=== PATIENT | male | born 1955 ===

== ENCOUNTER 2023-05-14 09:07 | Emergency (ER) | payer MEDICARE, SELFPAY ==
--- NOTE | 2023-05-14 09:11 | ED.SKABFB ---
HPI - Skin/Abscess/Foreign Bdy General Chief complaint: Skin/Abscess/Foreign Body Stated complaint: Left Leg Irritation Time Seen by Provider: 05/14/23 09:11 Source: patient Mode of arrival: ambulatory Limitations: no limitations History of Present Illness HPI narrative: Gurmeet is a 67-year-old male patient presenting to the clinic today with complaints of left leg pain/swelling x 4 days. He reports he rubbed/scratched the back of his left leg on a metal piece from his truck when getting out. Leg is swollen, red, and tender. He denies any fever or chills. History of cellulitis of the right leg in the past. Related Data Home Medications Medication Instructions Recorded Confirmed No Home Medications 05/14/23 05/14/23 Allergies Allergy/AdvReac Type Severity Reaction Status Date / Time erythromycin base Allergy Severe Swelling Verified 05/14/23 09:33 of Lip/Tongue/Throat Penicillins Allergy Unknown Unknown Verified 05/14/23 09:33 Review of Systems Review of Systems: Pertinent positives per HPI. Patient denies any fever, chills, rash, headache, visual changes, dizziness, cough, runny nose, sore throat, shortness of breath, chest pain, palpitations, nausea, vomiting, diarrhea, constipation, abdominal pain, or any urinary issues. [facility] Social History Social History Smoking status: Never smoker Alcohol intake: never Substance use: never Lack of Transportation: No Lack of Food: Never True Current Housing: I Have Housing Concerned About Future Housing: No Difficulty Paying Gas/Electric Bills: No Difficulty Paying for Meds: No Currently Unemployed: No Education: High School Diploma/GED Difficulty w/ Childcare or Family Care: No Spiritual care concerns: No Comments At the time of my signature, I reviewed and agree with the nursing past medical, surgical, social, and family history. There is no relevant family history pertinent to the patient complaint. Exam Narrative: General: Well-developed, morbidly obese, in no apparent distress Head: Normocephalic, atraumatic. Cardio: Regular rate and rhythm, s1 and s2 normal, no murmur appreciated. Resp: Clear to auscultation bilaterally, no rhonchi, rales, wheezing or rubs. Musculoskeletal: No deformity, redness and swelling-1+ pitting edema to the left lower extremity-above the ankle to the knee, tender to palpation with erythema noted, grossly normal range of motion, muscle strength strong and equal, peripheral pulse strong, no cyanosis, normal gait and station Course Course Emergency Course: Portions of this record may have been created with voice recognition software. Level of Care: Express Care Visit Vital Signs Vital signs: Vital Signs Temperature 37.3 C 05/14/23 09:18 Pulse Rate 75 05/14/23 09:18 Respiratory Rate 16 05/14/23 09:18 Blood Pressure 142/84 H 05/14/23 09:18 Pulse Oximetry 95 05/14/23 09:18 Oxygen Delivery Room Air 05/14/23 09:18 Temperature 37.3 C 05/14/23 09:18 Pulse Rate 75 05/14/23 09:18 Respiratory Rate 16 05/14/23 09:18 Blood Pressure 142/84 H 05/14/23 09:18 Pulse Oximetry 95 05/14/23 09:18 Oxygen Delivery Room Air 05/14/23 09:18 Vital signs reviewed Transfer Transfered to: [place] Transportation: Other (private car) Transfer rationale: Cellulitis-left lower extremity Accepting physician: Dr. Fischer Transfer comments: transfer via private car. MDM - Skin/Abscess/Foreign Bdy MDM Narrative Medical decision making narrative: At the time of visit patient is resting comfortably on the exam table. I suspect patient has left lower leg cellulitis. Recommend transfer to the ER for blood work and IV antibiotics. Contacted Dr. Fischer for continuity of care and he accepts patient. Patient to be transferred via private car to [facility] ER. Differential Diagnosis Differential diagnosis: Marley
[2023-05-14 09:18] VITALS: BP 142/84; PULSE 75; RESP 16; TEMP 37.3; O2SAT 95
== END 2023-05-14 09:25 | disposition short-term general hospital (02) ==
PROVIDERS: Emergency Provider Nurse Practitioner Family; PCP Family Medicine
DX: L03.116 Cellulitis of left lower limb (principal)
CPT/HCPCS: 99212; G0463

== ENCOUNTER 2023-05-14 09:44 | Inpatient (IN) | payer MEDICARE, SELFPAY ==
[2023-05-14] VITALS (8 sets, daily range): BP systolic 126–171; BP diastolic 70–95; PULSE 79–95; RESP 12–22; TEMP 36.1–36.8; O2SAT 93–98; BMI 61.1
--- NOTE | ~2023-05-14 | MR_ITS ---
MRI of the left lower extremity CLINICAL HISTORY: Cellulitis TECHNIQUE: Sagittal T1-weighted and STIR images, coronal T1-weighted and STIR images, and axial T1-we ighted and STIR images were acquired. FINDINGS: Bone marrow signals are unremarkable. No fracture, marrow edema, or evidence for osteitis. No periosteal reaction evident. No evidence for medial tibial stress syndrome. Visualized muscle signals are essentially unremarkable. No muscle atrophy or edema evident. Visualize d tendons are grossly intact. Inferior portion of a large Rivas's cyst is noted at the superomedial aspect of the calf. There is di ffuse subcutaneous soft tissue edema the calf, consistent with history sialitis. No evidence for absc ess. IMPRESSION: No evidence for osteomyelitis or abscess. Diffuse subcutaneous soft tissue edema, consistent with history of cellulitis. Partially imaged large Rivas's cyst at the left knee region. Reviewed, dictated and finalized at [facility].
--- NOTE | ~2023-05-14 | XR_ITS ---
XR chest 1V portable DATE: 05/14/2023 11:54 INDICATION: Elevated white blood cell count and CRP TECHNIQUE: Portable upright AP views on 05/14/2023 at 1153 1154 hours COMPARISON: None FINDINGS: Cardiomegaly. There is pulmonary vascular congestion and redistribution, mild prominence of the minor fissure suggesting subpleural edema. Patchy infiltrate or atelectasis in the left lower lobe. No pleural effusion or pneumothorax is detec gaby. Levoscoliosis and degenerative spurring of the thoracic spine. IMPRESSION: Cardiomegaly, mild congestive changes Left lower lobe infiltrate or atelectasis Reviewed, dictated and finalized at location [facility].
--- NOTE | ~2023-05-14 | US_ITS ---
EXAMINATION: US venous doppler [facility] DATE: 05/15/2023 14:09 INDICATION: Lower extremity edema . TECHNIQUE: Grayscale images without and with compression and Doppler images of the bilateral lower ex tremity veins were obtained. COMPARISON: None FINDINGS: Right peroneal veins not visualized. The right common femoral vein, profunda (deep) femoral vein, fem oral vein, popliteal vein, posterior tibial veins, gastrocnemius vein, and greater saphenous vein are patent. The left common femoral vein, profunda (deep) femoral vein, femoral vein, popliteal vein, peroneal v ein, posterior tibial veins, gastrocnemius vein, and greater saphenous vein are patent. IMPRESSION: Right peroneal veins not visualized. Otherwise patent bilateral lower extremity veins without evidence of deep venous thrombosis. Reviewed, dictated and finalized at [facility]. IMPRESSION: Right peroneal veins not visualized. Otherwise patent bilateral lower extremity veins without evidence of deep venou s thrombosis.
[2023-05-14 10:13] LABS: Basophils Percent Auto 0.4 % (0.2-1.2); Eosinophils Absolute Auto 0.1 K/mm3 (0-0.3); Eosinophils Percent Auto 0.7 % (0-4.4); Hematocrit 47.4 % (42.0-52.0); Hemoglobin 14.7 g/dL (14.0-18.0); Immature Granulocyte Absolute 0.06 K/mm3 (0.00-0.031); Immature Granulocyte Percent A 0.6 % (0-0.5); Lymphocytes Absolute Auto 1.82 K/mm3 (0.9-3.2); Lymphocytes Percent Auto 16.7 % (18.3-44.2); Mean Corpuscular Hemoglobin 28.1 pg (26-34); Mean Corpuscular Volume 90.6 fl (80-100); Mean Platelet Volume 10.3 fl (7.4-10.4); Monocytes Absolute Auto 0.8 K/mm3 (0.1-0.6); Monocytes Percent Auto 7.3 % (2.6-8.5); Neutrophils Absolute Auto 8.1 K/mm3 (1.3-6.7); Neutrophils Percent Auto 74.3 % (45.5-73.1); Platelet Count Result 180 k/mm3 (150-375); Red Blood Count 5.23 M/mm3 (4.6-6.20); Red Cell Distribution Width 15.7 % (11.5-14.5); White Blood Count 10.9 K/mm3 (4.5-10.0)
[2023-05-14 10:29] LABS: Alanine Aminotransferase 27 U/L (6-50); Albumin Level 3.8 g/dL (3.5-5.1); Alkaline Phosphatase 89 U/L (38-126); Anion Gap 4 mmol/L (8-16); Aspartate Amino Transferase 41 U/L (17-59); Bilirubin,Total 0.9 mg/dL (0.2-1.3); Blood Urea Nitrogen 17 mg/dL (9-20); Calcium 8.4 mg/dL (8.4-10.2); Carbon Dioxide 33 mmol/L (22-30); Chloride 97 mmol/L (98-107); Estimated CRCL calculation 108 ml/min; Estimated Glomerular Filt Rate > 60; Glucose 137 mg/dL (65-110); Potassium 3.6 mmol/L (3.4-5.0); Sodium 134 mmol/L (137-145)
--- NOTE | 2023-05-14 10:34 | ED.EXTPRO ---
HPI - Extremity Problem General Chief complaint: Extremity Problem,Nontraumatic Stated complaint: L LEG REDNESS Time Seen by Provider: 05/14/23 10:11 History of Present Illness HPI Narrative: 67-year-old male reports to the emergency department for evaluation of redness to his left lower extremity x4 days. Patient states 4 days ago, he accidentally hit the back of his left lower leg on the side of his truck. Since then he has had increasing and worsening redness spreading up his leg to his knee. States he was at urgent care and was advised to come to the ED for further evaluation. The patient does not have a PCP and denies taking any medications or medical history. He denies fever, body aches or chills, nausea or vomiting, abdominal pain, chest pain or shortness of breath, history of VTE or CHF. Denies weeping to lower extremity. Related Data Allergies Allergy/AdvReac Type Severity Reaction Status Date / Time erythromycin base Allergy Severe Swelling Verified 05/14/23 09:33 of Lip/Tongue/Throat Penicillins Allergy Unknown Unknown Verified 05/14/23 09:33 Review of Systems Review of Systems: CONSTITUTIONAL: Denies fever, chills EYES: Denies visual changes, redness, or discharge. ENT: Denies rhinorrhea, congestion, sore throat, or otalgia. CARDIOVASCULAR: Denies chest pain, palpitations, or edema. RESPIRATORY: Denies cough or dyspnea. GASTROINTESTINAL: Denies abdominal pain, nausea, vomiting, or diarrhea. GENITOURINARY: Denies dysuria or hematuria. SKIN: See HPI MUSCULOSKELETAL: Denies back pain, joint pain, or myalgia. NEUROLOGIC: Denies headache, numbness, dizziness, or weakness. PSYCHIATRIC: Denies anxiety or depression. [facility] Social History Social History Smoking status: Never smoker Alcohol intake: never Exam Narrative: GENERAL: Well-appearing, in no acute distress. Patient resting comfortably in exam bed. He is pleasant and conversational. HEAD: Normocephalic EYES: PERRLA ENT: Nares clear. Mucous membranes moist. Oropharynx without tonsillar hypertrophy exudate or other lesions. NECK: Supple. CHEST: No respiratory distress. Clear to auscultation, no adventitious breath sounds. HEART: Regular rate and rhythm. No murmur heard. Normal peripheral pulses. ABDOMEN: Soft, nontender, normal active bowel sounds. EXTREMITIES: Normal range of motion. No edema. SKIN: LLE with circumferential blanching erythema and warmth from the dorsum of the foot extending up to the knee. Small healing abrasion to the posterior aspect of the left lower extremity. No active weeping or drainage. Pitting edema from the dorsum of the foot to the knee. NEURO: No focal deficits. Alert and oriented x3. PSYCH: Normal mood and affect. Course Vital Signs Vital signs: Vital Signs Temperature 98.3 F 05/14/23 09:52 Pulse Rate 95 05/14/23 09:52 Respiratory Rate 18 05/14/23 09:52 Blood Pressure 171/95 H 05/14/23 09:52 Pulse Oximetry 96 05/14/23 09:52 Oxygen Delivery Room Air 05/14/23 09:52 Temperature 98.3 F 05/14/23 09:52 Pulse Rate 80 05/14/23 11:32 Respiratory Rate 18 05/14/23 11:32 Blood Pressure 145/70 H 05/14/23 11:32 Pulse Oximetry 97 05/14/23 11:32 Oxygen Delivery Room Air 05/14/23 09:52 MDM - Extremity (Nontraumatic) MDM Narrative Medical decision making narrative: 67-year-old male reports for evaluation for redness to his left lower extremity x4 days. See HPI for further history. Vitals taken for elevated blood pressure, otherwise unremarkable. He is afebrile. Exam is concerning for extensive circumferential cellulitis to the left lower extremity. Labs significant for a leukocytosis of 10.9. Chemistry shows sodium of 134, chloride of 97, bicarb of 33 and gap of 4. His CRP is elevated at 19. Chest x-ray and urinalysis obtained given elevated CRP. Chest x-ray shows cardiomegaly and mild congestive rios
[2023-05-14] MEDS: ceFAZolin 1 GM/NS 50 ML 1 GM/50 ML BAG IVPB ×2 (10:45→20:18)
[2023-05-14 10:56] LABS: Lactic Acid Reflex 1.2 mmol/L (0.7-2.0)
[2023-05-14 12:31] LABS: Appearance Urine Clear (Clear); Bilirubin Urine 1+ (Negative); Blood Urine 1+ (Negative); Color Urine Yellow (Yellow); Glucose Urine UA Negative (Negative); Ketones Urine Trace mg/dL (Negative); Leukocyte Esterase Ur Negative LEU/UL (Negative); Nitrate Urine Negative (Negative); Protein Urine 2+ mg/dL (Negative); pH Urine 5.5 (5.0-9.0)
[2023-05-14 12:37] LABS: Bacteria Urine None Seen /hpf; Non Pathogenic Casts 0-2; RBC Urine 0-2 /hpf (0-2); Squamous Epithelial Cell Urine Occasional /hpf (Few); WBC Urine 0-5 /hpf
[2023-05-14 12:47] LABS: Add Urine Microscopic? YES
--- NOTE | 2023-05-14 15:49 | PM.IMHP ---
H&P: HPI History of Present Illness Date/Time: 05/14/23 16:00 Chief Complaint: Left leg redness and swelling. Narrative: This is a 67-year-old gentleman history of cellulitis who presented to the emergency department from urgent care for evaluation of left leg swelling and redness. The patient provides the following history. On Tuesday he scraped his leg on a piece of loose metal on his pickup truck. Since that time he has had increasing redness and swelling which is now extending up the leg. Urgent care felt that he likely need IV antibiotics and was sent to the ED. He was afebrile on arrival with stable blood pressures. Labs were significant for a WBC count of 10.9, sodium 134, chloride 97, glucose 137, CRP 19.0. He was given 1 g of cefazolin and he is being admitted in this setting for further IV antibiotics. Chest x-ray was obtained in the ED for unclear reasons however there were several findings of note including cardiomegaly with mild congestive changes and left lower lobe infiltrate or atelectasis. With further questioning he admits that he has not gone to the doctor for quite some time but to his knowledge he has no significant medical history. He suspects that he has sleep apnea and his has witnessed apneic episodes. He has chronic lower extremity edema and sleeps better when in a seated position. He denies fever, chills, sweats, nausea, vomiting, chest pain, pleuritic pain, palpitations, sensations of racing heart, nausea, vomiting, and calf pain. Of note he has not had a tetanus booster for at least 6 years. Review of Systems Review of Systems: Twelve systems were reviewed and are negative except for as per HPI. 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 Repeat biopsy of the site 1 week later showed no evidence of neoplasm and several surveillance colonoscopies thereafter have showed no recurrence. Surgical History Surgical History (Updated 05/14/23 @ 15:57 by Emelia Frias PA-C) History of colonoscopy with polypectomy (06/2016) Family History Family History (Updated 05/14/23 @ 22:43 by Emelia Frias PA-C) Sibling Throat cancer Social History Social History Social History: Surrogate medical decision maker: China Ivey, spouse. Code status: Full code. Smoking status: Never smoker Alcohol intake: never Substance use: never Lack of Transportation: No Lack of Food: Never True Current Housing: I Have Housing Concerned About Future Housing: No Difficulty Paying Gas/Electric Bills: No Difficulty Paying for Meds: No Currently Unemployed: No Education: High School Diploma/GED Difficulty w/ Childcare or Family Care: No Additional living arrangements comments: Lives with spouse in [place]. Additional occupation/education comments: [employer]. Spiritual care concerns: No Meds Home Medications and Allergies Home Medications Medication Instructions Recorded Confirmed Type No Home Medications 05/14/23 05/14/23 History Allergies Allergy/AdvReac Type Severity Reaction Status Date / Time erythromycin base Allergy Severe Swelling Verified 05/14/23 09:33 of Lip/Tongue/Throat Penicillins Allergy Unknown Unknown Verified 05/14/23 09:33 Vital Signs Vital Signs - 24 hr 05/14/23 09:52 05/14/23 09:55 05/14/23 11:02 Temperature 98.3 F Pulse Rate 95 81 Respiratory Rate 18 22 H 16 Blood Pressure 171/95 H 171/95 H 134/74 Pulse Oximetry 96 95 94 Oxygen Delivery Room Air 05/14/23 11:17 05/14/23 11:32 05/14/23 13:34 Temperature Pulse Rate 83 80 80 Respiratory Rate 20 18 12 Blood Pressure 128/75 145/70 H 127/75 Pulse Oximetry 94 97 97 Oxygen Delivery 05/14/23 14:00 Temperature 97.4 F L Pulse Rate
--- NOTE | 2023-05-14 22:10 | PCRCNOTE ---
Pt refused the Apnea link for the evening of 05/14/2023. It is the patients first night in the hospital and he has an Echo in the morning he wants to get good rest for. Pt stated he is willing to try the apnea link tomorrow night if he is still here.
[2023-05-15 04:23] VITALS: BP 137/80; PULSE 78; RESP 18; TEMP 37.2; O2SAT 99
[2023-05-15] MEDS: ceFAZolin 1 GM/NS 50 ML 1 GM/50 ML BAG IVPB ×3 (05:53→21:00)
[2023-05-15] MEDS: TETANUS,DIPHTHERIA,AC PERTUSSIS ADULT (0.5 ML) BOOSTRIX IM (05:53)
[2023-05-15 07:04] LABS: Hematocrit 43.5 % (42.0-52.0); Hemoglobin 13.6 g/dL (14.0-18.0); Mean Corpuscular HGB Conc 31.3 g/dl (32-36); Mean Corpuscular Hemoglobin 28.6 pg (26-34); Mean Corpuscular Volume 91.4 fl (80-100); Mean Platelet Volume 10.4 fl (7.4-10.4); Platelet Count Result 176 k/mm3 (150-375); Red Blood Count 4.76 M/mm3 (4.6-6.20); Red Cell Distribution Width 15.8 % (11.5-14.5); White Blood Count 10.4 K/mm3 (4.5-10.0)
[2023-05-15 07:09] LABS: Anion Gap 6 mmol/L (8-16); Blood Urea Nitrogen 16 mg/dL (9-20); Calcium 8.2 mg/dL (8.4-10.2); Carbon Dioxide 29 mmol/L (22-30); Chloride 99 mmol/L (98-107); Estimated CRCL calculation 120 ml/min; Estimated Glomerular Filt Rate > 60; Glucose 136 mg/dL (65-110); Magnesium 2.3 mg/dL (1.6-2.3); Sodium 134 mmol/L (137-145)
[2023-05-15 07:16] LABS: NT Pro B Type Natriuretic Pept 254 pg/mL (19.9-100)
[2023-05-15] MEDS: ENOXAPARIN 40 MG/0.4 ML SYRINGE SUB-Q (08:40)
--- NOTE | 2023-05-15 13:39 | PM.IMPN ---
Progress Note: A&P Assessment and Plan (1) Left leg cellulitis: Code(s): L03.116 - Cellulitis of left lower limb Status: Acute (2) Cardiomegaly: Code(s): I51.7 - Cardiomegaly Status: Acute (3) Suspected sleep apnea: Code(s): R29.818 - Other symptoms and signs involving the nervous system Status: Acute Plan The patient presented to the emergency department for evaluation of increasing redness and swelling over the left leg. Findings of cellulitis left lower extremity. Started on cefazolin which will be continue Blood culture remains negative to date Incidental cardiomegaly with congestive changes. Get venous duplex and echocardiogram will be ordered. BNP 254. Suspected sleep apnea with morbid obesity apnea link was ordered patient refused testing 05/14/2023. DVT prophylaxis Lovenox Code status full code Subjective Date/time seen: 05/15/23 13:39 Interval history: Feeling better. His left leg cellulitis is not asthma is red he states. Remains afebrile. Vitals stable. Review of Systems Review of Systems: Twelve systems were reviewed and are negative except for as per HPI. Exam Narrative: General: Nontoxic, morbidly obese male sitting in a chair at the side of the bed in no acute distress. HEENT: Normocephalic, atraumatic. PERRL, EOMI. Sclera anicteric. Oral mucosa moist. Crowded oropharynx. Neck: Supple. Exam limited due to neck circumference. No obvious JVD. Respiratory: Respirations are nonlabored. Lung sounds are a bit diminished due to body habitus but are otherwise clear. Cardiovascular: Regular rate and rhythm with S1-S2. Gastrointestinal: Abdomen is morbidly obese, nontender, and nondistended with positive bowel sounds. Skin: Warm and dry. There is an erythematous patch on the left lower leg extending from the medial posterior calf over the brothers and to the lateral calf, it is not circumferential at this time. There is some streaking which extends more medially above the knee but not to the thigh. The area is warm. No wound or oozing noted. It him eyes not past the marking that was made yesterday Extremities: No cyanosis or clubbing. Legs are large with chronic pitting edema. Radial and pedal pulses intact. Neurological: Alert. Cranial nerves 2-12 are grossly intact. No gross focal deficits to casual conversation. Psychiatric: Appropriate mood and affect. Objective Data Vital Signs Vital Signs: Vital Signs - 24 hr 05/14/23 14:00 05/14/23 20:49 05/15/23 04:23 Temperature 97.4 F L 97 F L 98.9 F Pulse Rate 79 79 78 Respiratory Rate 18 18 18 Blood Pressure 131/84 126/77 137/80 Pulse Oximetry 98 93 99 Intake/Output Intake/Output: Intake & Output 05/12/23 05/13/23 05/14/23 05/15/23 23:59 23:59 23:59 23:59 Intake Total 1340 1194 Balance 1340 1194 Meds/Results Medications: Active Medications Generic Name Dose Route Start Last Admin Trade Name Freq PRN Reason Stop Dose Admin Acetaminophen 650 mg 05/14/23 16:00 Acetaminophen 325 Mg Tablet PO Q6H PRN Mild Pain (1-3) or Fever Enoxaparin Sodium 40 mg 05/15/23 09:00 05/15/23 08:40 Enoxaparin 40 Mg/0.4 Ml Syringe SUB-Q 40 mg DAILY NICOLE Administration Cefazolin Sodium 1 gm in 50 mls @ 100 mls/hr 05/14/23 20:00 05/15/23 13:07 Ancef 1 Gm/Ns 50 Ml IVPB 100 mls/hr Q8HR NICOLE Administration Perflutren Lipid Microsphere 0 ml 05/14/23 22:49 Perflutren Lipid Microspheres 1.5 Ml Vial Diluted To 10 Ml Total Volume IV PUSH 05/17/23 22:49 ONCE PRN adequate visualization Protocol Radiology Results: ITS Impressions Chest X-Ray 05/14/23 12:04 IMPRESSION: Cardiomegaly, mild congestive changes Left lower lobe infiltrate or atelectasis Labs Labs: Laboratory Results - last 24 hr 05/15/23 06:26 WBC 10.4 H RBC 4.76 Hgb 13.6 L Hct 43.5 MCV 91.4 MCH 28.6 MCHC 31.3 L RDW 15.8 H Plt Count 176 MPV 10.4
[2023-05-15 14:00] VITALS: BP 133/71; PULSE 79; RESP 22; TEMP 36.2; O2SAT 99
[2023-05-15 20:40] VITALS: BP 108/80; PULSE 79; RESP 20; TEMP 36.7; O2SAT 97
--- NOTE | 2023-05-16 | ECHO_ITS ---
Patient Info Name: Gurmeet Ivey Age: 67 years : 1955 Gender: Male Ht: 70 in Wt: 425 lbs BSA: 3.20 m2 HR: 80 bpm BP: 131 / 66 mmHg Heart Rhythm: Sinus Rhythm Technical Quality: Fair Exam Date: 05/16/2023 2:39 PM Exam Location: [facility] Pulmonary Patient Status: Inpatient Admit Date: 05/15/2023 Staff Ordering Physician: Emelia Frias PA-C Therapy Tech: Yanet Beauchamp RDCS Attending Provider: Medhat Buckner MD Referring Physician: Altagracia ARRIAGA; Exam Type: CA echo dop color flow w con Study Info Indications - Cardiomegaly, edema, congestive changes Complete two-dimensional, color flow and Doppler transthoracic echocardiogram is performed with contrast to opacify the left ventricle and to improve the deliniation of the left ventricle endocardial borders. Contrast/Agitated Saline Contrast/Ag. Saline: Definity Amount: 3.00 ml Administered By: Yanet Beauchamp RDCS Existing IV Access: Yes IV Access Condition: patent with no signs of infiltration Summary 1. Definity contrast administered improved wall motion interpretation. 2. Left ventricular chamber dimension is normal. 3. Left ventricular systolic function is normal, estimated at 60-65%. 4. There is moderate asymmetric septal increased left ventricular wall thickness. 5. The left ventricular diastolic function is grade I diastolic dysfunction. 6. E/e' 11 is mildly elevated. 7. Left atrial chamber dimension is mildly enlarged. 8. Right atrial chamber dimension is mildly enlarged. 9. There is trace tricuspid valve regurgitation. 10. No pulmonary hypertension, estimated pulmonary arterial systolic pressure is 26 mmHg. Left Ventricle E/e' 11 is mildly elevated. Definity contrast administered improved wall motion interpretation. Left ventricular chamber dimension is normal. Left ventricular systolic function is normal, estimated at 60-65%. There is moderate asymmetric septal increased left ventricular wall thickness. The left ventricular diastolic function is grade I diastolic dysfunction. Right Ventricle Right ventricular systolic function is normal and with normal TAPSE 3.1 cm. Right ventricular chamber dimension is normal. Left Atria Left atrial chamber dimension is mildly enlarged. Right Atria Right atrial chamber dimension is mildly enlarged. Aortic Valve The aortic valve is trileaflet. There is no aortic valve stenosis. There is no aortic valve regurgitation. Pulmonic Valve There is no pulmonic regurgitation. Mitral Valve There is no mitral valve stenosis. There is no mitral valve regurgitation. Tricuspid Valve There is trace tricuspid valve regurgitation. No pulmonary hypertension, estimated pulmonary arterial systolic pressure is 26 mmHg. Pericardium/Pleural There is no pericardial effusion. Inferior Vena Cava Normal inferior vena cava with >50% collapse upon inspiration consistent with normal right atrial pressure, 5 mmHg. Aorta The aortic root size at the sinus of Valsalva is normal. Left Ventricular Outflow Tract Name Value Normal LVOT 2D LVOT Diameter 2.04 cm LVOT Doppler LVOT Peak Gradient 6 mmHg LVOT Mean Gradi
--- NOTE | 2023-05-16 02:57 | PCRCNOTE ---
Pt refused Apnea link and stated he will not do it.
[2023-05-16 05:56] VITALS: BP 131/66; PULSE 80; RESP 20; TEMP 36.9; O2SAT 95
[2023-05-16] MEDS: ceFAZolin 1 GM/NS 50 ML 1 GM/50 ML BAG IVPB ×3 (06:00→21:02)
[2023-05-16 07:18] LABS: Basophils Absolute Auto 0.1 K/mm3 (0.0-0.1); Basophils Percent Auto 0.8 % (0.2-1.2); Eosinophils Absolute Auto 0.3 K/mm3 (0-0.3); Eosinophils Percent Auto 2.7 % (0-4.4); Hematocrit 42.5 % (42.0-52.0); Hemoglobin 13.3 g/dL (14.0-18.0); Immature Granulocyte Absolute 0.18 K/mm3 (0.00-0.031); Immature Granulocyte Percent A 1.8 % (0-0.5); Lymphocytes Absolute Auto 1.86 K/mm3 (0.9-3.2); Lymphocytes Percent Auto 18.9 % (18.3-44.2); Mean Corpuscular HGB Conc 31.3 g/dl (32-36); Mean Corpuscular Hemoglobin 28.1 pg (26-34); Mean Corpuscular Volume 89.9 fl (80-100); Monocytes Absolute Auto 0.7 K/mm3 (0.1-0.6); Neutrophils Absolute Auto 6.8 K/mm3 (1.3-6.7); Neutrophils Percent Auto 68.8 % (45.5-73.1); Platelet Count Result 189 k/mm3 (150-375); Red Blood Count 4.73 M/mm3 (4.6-6.20); Red Cell Distribution Width 15.6 % (11.5-14.5); White Blood Count 9.9 K/mm3 (4.5-10.0)
[2023-05-16 07:24] LABS: Alanine Aminotransferase 22 U/L (6-50); Albumin Level 3.3 g/dL (3.5-5.1); Alkaline Phosphatase 82 U/L (38-126); Anion Gap 4 mmol/L (8-16); Aspartate Amino Transferase 33 U/L (17-59); Bilirubin,Total 0.9 mg/dL (0.2-1.3); Blood Urea Nitrogen 13 mg/dL (9-20); Calcium 8.3 mg/dL (8.4-10.2); Carbon Dioxide 32 mmol/L (22-30); Chloride 99 mmol/L (98-107); Estimated CRCL calculation 120 ml/min; Estimated Glomerular Filt Rate > 60; Glucose 128 mg/dL (65-110); Magnesium 2.2 mg/dL (1.6-2.3); Potassium 3.8 mmol/L (3.4-5.0); Sodium 135 mmol/L (137-145)
[2023-05-16] MEDS: ENOXAPARIN 40 MG/0.4 ML SYRINGE SUB-Q (08:42)
[2023-05-16 14:00] VITALS: BP 129/60; PULSE 73; RESP 16; TEMP 37.3; O2SAT 95
[2023-05-16] MEDS: PERFLUTREN LIPID MICROSPHERES 1.5 ML VIAL DILUTED TO 10 ML TOTAL VOLUME IV PUSH (15:10)
--- NOTE | 2023-05-16 16:32 | PM.IMPN ---
Progress Note: A&P Assessment and Plan (1) Left leg cellulitis: Code(s): L03.116 - Cellulitis of left lower limb Status: Acute (2) Cardiomegaly: Code(s): I51.7 - Cardiomegaly Status: Acute (3) Suspected sleep apnea: Code(s): R29.818 - Other symptoms and signs involving the nervous system Status: Acute Plan The patient presented to the emergency department for evaluation of increasing redness and swelling over the left leg. Findings of cellulitis left lower extremity. Started on cefazolin which will be continued Blood culture remains negative to date Incidental cardiomegaly with congestive changes. Get venous duplex and echocardiogram will be ordered. BNP 254. Will give a dose of Lasix Suspected sleep apnea with morbid obesity apnea link was ordered patient refused testing 05/14/2023. DVT prophylaxis Lovenox Code status full code Subjective Date/time seen: 05/16/23 16:32 Interval history: Feeling better. Pain is better. Redness still persist. Review of Systems Review of Systems: All systems reviewed & are unremarkable except as noted in HPI and below Exam Narrative: General: Nontoxic, morbidly obese male sitting in a chair at the side of the bed in no acute distress. HEENT: Normocephalic, atraumatic. PERRL, EOMI. Sclera anicteric. Oral mucosa moist. Crowded oropharynx. Neck: Supple. Exam limited due to neck circumference. No obvious JVD. Respiratory: Respirations are nonlabored. Lung sounds are a bit diminished due to body habitus but are otherwise clear. Cardiovascular: Regular rate and rhythm with S1-S2. Gastrointestinal: Abdomen is morbidly obese, nontender, and nondistended with positive bowel sounds. Skin: Warm and dry. There is an erythematous patch on the left lower leg extending from the medial posterior calf over the brothers and to the lateral calf, it is not circumferential at this time. There is some streaking which extends more medially above the knee but not to the thigh. The area is warm. No wound or oozing noted. It is not past the marking that was made on admission Extremities: No cyanosis or clubbing. Legs are large with chronic pitting edema. Radial and pedal pulses intact. Neurological: Alert. Cranial nerves 2-12 are grossly intact. No gross focal deficits to casual conversation. Psychiatric: Appropriate mood and affect. Objective Data Vital Signs Vital Signs: Vital Signs - 24 hr 05/15/23 20:40 05/16/23 05:56 05/16/23 14:00 Temperature 98.0 F 98.4 F 99.1 F Pulse Rate 79 80 73 Respiratory Rate 20 20 16 Blood Pressure 108/80 131/66 129/60 Pulse Oximetry 97 95 95 Intake/Output Intake/Output: Intake & Output 05/13/23 05/14/23 05/15/23 05/16/23 23:59 23:59 23:59 23:59 Intake Total 1340 1534 1558 Balance 1340 1534 1558 Meds/Results Medications: Active Medications Generic Name Dose Route Start Last Admin Trade Name Freq PRN Reason Stop Dose Admin Acetaminophen 650 mg 05/14/23 16:00 Acetaminophen 325 Mg Tablet PO Q6H PRN Mild Pain (1-3) or Fever Enoxaparin Sodium 40 mg 05/15/23 09:00 05/16/23 08:42 Enoxaparin 40 Mg/0.4 Ml Syringe SUB-Q 40 mg DAILY NICOLE Administration Cefazolin Sodium 1 gm in 50 mls @ 100 mls/hr 05/14/23 20:00 05/16/23 13:48 Ancef 1 Gm/Ns 50 Ml IVPB Infused Q8HR NICOLE Infusion Perflutren Lipid Microsphere 0 ml 05/14/23 22:49 Perflutren Lipid Microspheres 1.5 Ml Vial Diluted To 10 Ml Total Volume IV PUSH 05/17/23 22:49 ONCE PRN adequate visualization Protocol Radiology Results: ITS Impressions Chest X-Ray 05/14/23 12:04 IMPRESSION: Cardiomegaly, mild congestive changes Left lower lobe infiltrate or atelectasis Venous Doppler Study 05/15/23 15:28 IMPRESSION: Right peroneal veins not visualized. Otherwise patent bilateral lower extremity veins without evidence of deep venous thrombosis. Labs Labs: Laboratory Results
--- NOTE | 2023-05-16 16:40 | IVDEFINITY ---
Prior to administration of IV Definity the patient was educated on the risks and benefits of the imaging enhancing agent including potential adverse side effects. The patient verbalized understanding. Allergies were verified. No exclusion criteria were identified and at least one of the following inclusion criteria were met: 1) physician request, 2) patient technically difficult to image (per the [place] [employer] guidelines of two or more segments not discernable within the apical view), or 3) questionable left ventricular function. ?
[2023-05-16] MEDS: FUROSEMIDE INJ 40 MG/4 ML VIAL IV PUSH (17:06)
[2023-05-16 20:00] VITALS: O2SAT 95
[2023-05-16 22:00] VITALS: BP 112/49; PULSE 83; RESP 20; TEMP 37; O2SAT 90
--- NOTE | 2023-05-17 00:25 | PCRCNOTE ---
Pt continues to refuse apnea link.
[2023-05-17 04:36] VITALS: BP 139/66; PULSE 77; RESP 20; TEMP 36.3; O2SAT 92
[2023-05-17] MEDS: ceFAZolin 1 GM/NS 50 ML 1 GM/50 ML BAG IVPB ×3 (05:28→20:31)
[2023-05-17] MEDS: ENOXAPARIN 40 MG/0.4 ML SYRINGE SUB-Q (08:21)
[2023-05-17 10:21] VITALS: O2SAT 93
--- NOTE | 2023-05-17 11:38 | PM.IMPN ---
Progress Note: A&P Assessment and Plan (1) Left leg cellulitis: Code(s): L03.116 - Cellulitis of left lower limb Status: Acute (2) Cardiomegaly: Code(s): I51.7 - Cardiomegaly Status: Acute (3) Suspected sleep apnea: Code(s): R29.818 - Other symptoms and signs involving the nervous system Status: Acute Plan The patient presented to the emergency department for evaluation of increasing redness and swelling over the left leg. Findings of cellulitis left lower extremity. Started on cefazolin which will be continued. Will get MRSA screen leg swelling still present. Some blistering of the legs with some yellowish fluid present. Will add vancomycin pharmacy to dose Blood culture remains negative to date Incidental cardiomegaly with congestive changes. Venous duplex negative. Echocardiogram reviewed. BNP 254. Continue diuresis with Lasix. Suspected sleep apnea with morbid obesity apnea link was ordered patient refused testing 05/14/2023. DVT prophylaxis Lovenox Code status full code Subjective Date/time seen: 05/17/23 11:38 Interval history: Feeling better. Pain is better. Redness still persist. Has some blistering on his leg Review of Systems Review of Systems: All systems reviewed & are unremarkable except as noted in HPI and below Exam Narrative: General: Nontoxic, morbidly obese male sitting in a chair at the side of the bed in no acute distress. HEENT: Normocephalic, atraumatic. PERRL, EOMI. Sclera anicteric. Oral mucosa moist. Crowded oropharynx. Neck: Supple. Exam limited due to neck circumference. No obvious JVD. Respiratory: Respirations are nonlabored. Lung sounds are a bit diminished due to body habitus but are otherwise clear. Cardiovascular: Regular rate and rhythm with S1-S2. Gastrointestinal: Abdomen is morbidly obese, nontender, and nondistended with positive bowel sounds. Skin: Warm and dry. There is an erythematous patch on the left lower leg extending from the medial posterior calf over the brothers and to the lateral calf, it is not circumferential at this time. There is some streaking which extends more medially above the knee but not to the thigh. The area is warm. There are some blisters present on his anterior leg. No wound or oozing noted. It is not past the marking that was made on admission Extremities: No cyanosis or clubbing. Legs are large with chronic pitting edema. Radial and pedal pulses intact. Neurological: Alert. Cranial nerves 2-12 are grossly intact. No gross focal deficits to casual conversation. Psychiatric: Appropriate mood and affect. Objective Data Vital Signs Vital Signs: Vital Signs - 24 hr 05/16/23 14:00 05/16/23 20:00 05/16/23 22:00 Temperature 99.1 F 98.6 F Pulse Rate 73 83 Respiratory Rate 16 20 Blood Pressure 129/60 112/49 L Pulse Oximetry 95 95 90 Oxygen Delivery Room Air 05/17/23 04:36 05/17/23 08:00 05/17/23 10:21 Temperature 97.3 F L Pulse Rate 77 Respiratory Rate 20 Blood Pressure 139/66 Pulse Oximetry 92 93 Oxygen Delivery Room Air Room Air Intake/Output Intake/Output: Intake & Output 05/14/23 05/15/23 05/16/23 05/17/23 23:59 23:59 23:59 23:59 Intake Total 1340 1534 2380 690 Balance 1340 1534 2380 690 Meds/Results Medications: Active Medications Generic Name Dose Route Start Last Admin Trade Name Freq PRN Reason Stop Dose Admin Acetaminophen 650 mg 05/14/23 16:00 Acetaminophen 325 Mg Tablet PO Q6H PRN Mild Pain (1-3) or Fever Enoxaparin Sodium 40 mg 05/15/23 09:00 05/17/23 08:21 Enoxaparin 40 Mg/0.4 Ml Syringe SUB-Q 40 mg DAILY NICOLE Administration Cefazolin Sodium 1 gm in 50 mls @ 100 mls/hr 05/14/23 20:00 05/17/23 06:06 Ancef 1 Gm/Ns 50 Ml IVPB Infused Q8HR NICOLE Infusion Radiology Results: ITS Impressions Chest X-Ray 05/14/23 12:04 IMPRESSION: Cardiomegaly, mild congestive changes Left lower lobe infiltrate or
[2023-05-17] MEDS: FUROSEMIDE INJ 40 MG/4 ML VIAL IV PUSH (12:21)
[2023-05-17 14:00] VITALS: BP 130/71; PULSE 72; RESP 20; TEMP 36.4; O2SAT 93
[2023-05-17] MEDS: MUPIROCIN 2% OINT 22 GM TUBE 1 APPLIC TOPICAL ×2 (17:54→20:32)
--- NOTE | 2023-05-17 19:08 | PCRCNOTE ---
Pt has refused apnea link 3 nights in a row now, therefore it was not completed
[2023-05-17 21:46] VITALS: BP 129/77; PULSE 81; RESP 18; TEMP 37.1; O2SAT 94
[2023-05-18] MEDS: ceFAZolin 1 GM/NS 50 ML 1 GM/50 ML BAG IVPB ×2 (05:28→14:02)
[2023-05-18 06:00] VITALS: BP 142/82; PULSE 72; RESP 20; TEMP 36.9; O2SAT 95
[2023-05-18 07:24] LABS: Basophils Absolute Auto 0.1 K/mm3 (0.0-0.1); Basophils Percent Auto 0.6 % (0.2-1.2); Eosinophils Absolute Auto 0.2 K/mm3 (0-0.3); Hemoglobin 13.2 g/dL (14.0-18.0); Immature Granulocyte Absolute 0.18 K/mm3 (0.00-0.031); Immature Granulocyte Percent A 2.3 % (0-0.5); Lymphocytes Absolute Auto 2.17 K/mm3 (0.9-3.2); Lymphocytes Percent Auto 27.2 % (18.3-44.2); Mean Corpuscular HGB Conc 31.4 g/dl (32-36); Mean Corpuscular Hemoglobin 28.3 pg (26-34); Mean Corpuscular Volume 89.9 fl (80-100); Mean Platelet Volume 9.6 fl (7.4-10.4); Monocytes Absolute Auto 0.6 K/mm3 (0.1-0.6); Monocytes Percent Auto 6.9 % (2.6-8.5); Neutrophils Absolute Auto 4.9 K/mm3 (1.3-6.7); Platelet Count Result 242 k/mm3 (150-375); Red Blood Count 4.67 M/mm3 (4.6-6.20); Red Cell Distribution Width 15.6 % (11.5-14.5)
[2023-05-18 07:32] LABS: Chloride 95 mmol/L (98-107)
[2023-05-18 07:38] LABS: Alanine Aminotransferase 18 U/L (6-50); Albumin Level 3.3 g/dL (3.5-5.1); Alkaline Phosphatase 78 U/L (38-126); Anion Gap 3 mmol/L (8-16); Aspartate Amino Transferase 33 U/L (17-59); Bilirubin,Total 0.8 mg/dL (0.2-1.3); Blood Urea Nitrogen 14 mg/dL (9-20); Calcium 8.1 mg/dL (8.4-10.2); Carbon Dioxide 35 mmol/L (22-30); Estimated CRCL calculation 108 ml/min; Estimated Glomerular Filt Rate > 60; Glucose 136 mg/dL (65-110); Magnesium 2.1 mg/dL (1.6-2.3); Potassium 3.8 mmol/L (3.4-5.0); Sodium 133 mmol/L (137-145)
[2023-05-18] MEDS: FUROSEMIDE INJ 40 MG/4 ML VIAL IV PUSH (09:14)
[2023-05-18] MEDS: MUPIROCIN 2% OINT 22 GM TUBE 1 APPLIC TOPICAL ×2 (09:16→20:55)
[2023-05-18] MEDS: ENOXAPARIN 40 MG/0.4 ML SYRINGE SUB-Q (09:16)
[2023-05-18 14:00] VITALS: BP 126/79; PULSE 73; RESP 20; TEMP 35.9; O2SAT 97
--- NOTE | 2023-05-18 15:37 | PM.IMPN ---
Progress Note: A&P Assessment and Plan (1) Left leg cellulitis: Code(s): L03.116 - Cellulitis of left lower limb Status: Acute (2) Cardiomegaly: Code(s): I51.7 - Cardiomegaly Status: Acute (3) Suspected sleep apnea: Code(s): R29.818 - Other symptoms and signs involving the nervous system Status: Acute Plan Improving pain but erythema still the same Continue Continue Rocephin and Vancomcycin Blood culture remains negative to date Incidental cardiomegaly with congestive changes. Venous duplex negative. Echocardiogram notable for diastolic grade I dysfunction. BNP 254. Continue diuresis with Lasix. Suspected sleep apnea with morbid obesity apnea link was ordered patient refused testing 05/14/2023. DVT prophylaxis Lovenox Code status full code Subjective Date/time seen: 05/18/23 15:37 Interval history: Patient noted pain has markedly improved, however redness still the same Review of Systems Review of Systems: Twelve systems were reviewed and are negative except for as per HPI. All systems reviewed & are unremarkable except as noted in HPI and below Exam Narrative: General: Nontoxic, morbidly obese male sitting in a chair at the side of the bed in no acute distress. HEENT: Normocephalic, atraumatic. PERRL, EOMI. Sclera anicteric. Oral mucosa moist. Crowded oropharynx. Neck: Supple. Exam limited due to neck circumference. No obvious JVD. Respiratory: Respirations are nonlabored. Lung sounds are a bit diminished due to body habitus but are otherwise clear. Cardiovascular: Regular rate and rhythm with S1-S2. Gastrointestinal: Abdomen is morbidly obese, nontender, and nondistended with positive bowel sounds. Skin: Warm and dry. There is an erythematous patch on the left lower leg extending from the medial posterior calf over the brothers and to the lateral calf, it is not circumferential at this time. There is some streaking which extends more medially above the knee but not to the thigh. The area is warm. There are some blisters present on his anterior leg. No wound or oozing noted. It is not past the marking that was made on admission Extremities: No cyanosis or clubbing. Legs are large with chronic pitting edema. Radial and pedal pulses intact. Neurological: Alert. Cranial nerves 2-12 are grossly intact. No gross focal deficits to casual conversation. Psychiatric: Appropriate mood and affect. Objective Data Vital Signs Vital Signs: Vital Signs - 24 hr 05/17/23 21:46 05/18/23 06:00 05/18/23 09:15 Temperature 98.8 F 98.4 F Pulse Rate 81 72 Respiratory Rate 18 20 Blood Pressure 129/77 142/82 H Pulse Oximetry 94 95 Oxygen Delivery Room Air 05/18/23 14:00 05/18/23 14:00 Temperature 96.7 F L Pulse Rate 73 Respiratory Rate 20 Blood Pressure 126/79 Pulse Oximetry 97 97 Oxygen Delivery Room Air Intake/Output Intake/Output: Intake & Output 05/15/23 05/16/23 05/17/23 05/18/23 23:59 23:59 23:59 23:59 Intake Total 1534 2380 5156 3100 Balance 1534 2380 5156 3100 Meds/Results Medications: Active Medications Generic Name Dose Route Start Last Admin Trade Name Freq PRN Reason Stop Dose Admin Acetaminophen 650 mg 05/14/23 16:00 Acetaminophen 325 Mg Tablet PO Q6H PRN Mild Pain (1-3) or Fever Enoxaparin Sodium 40 mg 05/15/23 09:00 05/18/23 09:16 Enoxaparin 40 Mg/0.4 Ml Syringe SUB-Q 40 mg DAILY NICOLE Administration Furosemide 40 mg 05/17/23 11:40 05/18/23 09:14 Furosemide Inj 40 Mg/4 Ml Vial IV PUSH 40 mg DAILY NICOLE Administration Cefazolin Sodium 1 gm in 50 mls @ 100 mls/hr 05/14/23 20:00 05/18/23 14:32 Ancef 1 Gm/Ns 50 Ml IVPB Infused Q8HR NICOLE Infusion Vancomycin HCl 1,500 mg in 500 mls @ 250 mls/hr 05/17/23 12:00 05/18/23 13:42 Vancomycin 1,500 Mg/D5w 500 Ml IVPB Infused Q12H NICOLE Infusion Mupirocin 1 applic 05/17/23 09:00 05/18/23 09:16 Mupirocin 2% Oint 22 G
[2023-05-18] MEDS: cefTRIAXone 2 GM/NS 100 ML 2 GM/100 ML BAG IVPB (20:54)
[2023-05-18 21:13] VITALS: BP 118/69; PULSE 70; RESP 18; TEMP 36.6; O2SAT 96
[2023-05-19 00:32] LABS: Vancomycin Trough 9.1 ug/mL (10.0-20.0)
[2023-05-19 04:56] VITALS: BP 128/75; PULSE 73; RESP 18; TEMP 36.6; O2SAT 94
[2023-05-19 07:06] LABS: Basophils Percent Auto 0.5 % (0.2-1.2); Eosinophils Absolute Auto 0.2 K/mm3 (0-0.3); Eosinophils Percent Auto 2.1 % (0-4.4); Hematocrit 43.5 % (42.0-52.0); Hemoglobin 13.6 g/dL (14.0-18.0); Immature Granulocyte Absolute 0.14 K/mm3 (0.00-0.031); Immature Granulocyte Percent A 1.6 % (0-0.5); Lymphocytes Absolute Auto 2.32 K/mm3 (0.9-3.2); Lymphocytes Percent Auto 26.7 % (18.3-44.2); Mean Corpuscular HGB Conc 31.3 g/dl (32-36); Mean Corpuscular Hemoglobin 28.2 pg (26-34); Mean Corpuscular Volume 90.2 fl (80-100); Mean Platelet Volume 9.2 fl (7.4-10.4); Monocytes Absolute Auto 0.5 K/mm3 (0.1-0.6); Monocytes Percent Auto 5.8 % (2.6-8.5); Neutrophils Absolute Auto 5.5 K/mm3 (1.3-6.7); Neutrophils Percent Auto 63.3 % (45.5-73.1); Platelet Count Result 263 k/mm3 (150-375); Red Blood Count 4.82 M/mm3 (4.6-6.20); Red Cell Distribution Width 15.5 % (11.5-14.5); White Blood Count 8.7 K/mm3 (4.5-10.0)
[2023-05-19 07:24] LABS: Lactic Acid Reflex 1.2 mmol/L (0.7-2.0)
[2023-05-19 07:28] LABS: Alanine Aminotransferase 19 U/L (6-50); Albumin Level 3.4 g/dL (3.5-5.1); Alkaline Phosphatase 78 U/L (38-126); Anion Gap 5 mmol/L (8-16); Aspartate Amino Transferase 31 U/L (17-59); Bilirubin,Total 0.7 mg/dL (0.2-1.3); Blood Urea Nitrogen 12 mg/dL (9-20); Calcium 8.4 mg/dL (8.4-10.2); Carbon Dioxide 33 mmol/L (22-30); Chloride 94 mmol/L (98-107); Estimated CRCL calculation 99 ml/min; Estimated Glomerular Filt Rate > 60; Glucose 126 mg/dL (65-110); Potassium 3.9 mmol/L (3.4-5.0); Sodium 132 mmol/L (137-145)
[2023-05-19] MEDS: ENOXAPARIN 40 MG/0.4 ML SYRINGE SUB-Q (08:13)
[2023-05-19] MEDS: MUPIROCIN 2% OINT 22 GM TUBE 1 APPLIC TOPICAL ×2 (08:13→20:18)
[2023-05-19] MEDS: FUROSEMIDE INJ 40 MG/4 ML VIAL IV PUSH (08:13)
--- NOTE | 2023-05-19 12:11 | PM.IMPN ---
Progress Note: A&P Assessment and Plan (1) Left leg cellulitis: Code(s): L03.116 - Cellulitis of left lower limb Status: Acute (2) Cardiomegaly: Code(s): I51.7 - Cardiomegaly Status: Acute (3) Suspected sleep apnea: Code(s): R29.818 - Other symptoms and signs involving the nervous system Status: Acute Plan Cellulitis of lower extremity Improving pain but erythema still the same Continue Continue Rocephin and Vancomcycin Blood culture remains negative to date Patient has a scattered blisters containing pus on the lower extremity, consult general surgeon for evaluation possible I and D Incidental cardiomegaly with congestive changes. Venous duplex negative. Echocardiogram notable for diastolic grade I dysfunction. BNP 254. Continue diuresis with Lasix. Suspected sleep apnea with morbid obesity apnea link was ordered patient refused testing 05/14/2023. DVT prophylaxis Lovenox Code status full code Subjective Date/time seen: 05/19/23 12:11 Interval history: I saw and examined the patient. Still has significant cellulitis of left lower extremity, schedules blisters with pus Exam Narrative: General: Nontoxic, morbidly obese male sitting in a chair at the side of the bed in no acute distress. HEENT: Normocephalic, atraumatic. PERRL, EOMI. Sclera anicteric. Oral mucosa moist. Crowded oropharynx. Neck: Supple. Exam limited due to neck circumference. No obvious JVD. Respiratory: Respirations are nonlabored. Lung sounds are a bit diminished due to body habitus but are otherwise clear. Cardiovascular: Regular rate and rhythm with S1-S2. Gastrointestinal: Abdomen is morbidly obese, nontender, and nondistended with positive bowel sounds. Skin: Swelling, tender erythema of right lower extremity, there are some blisters containing pus on his anterior leg. The cellulitis is not past the marking that was made on admissin, but no significant improvement Extremities: No cyanosis or clubbing. Legs are large with chronic pitting edema. Radial and pedal pulses intact. Neurological: Alert. Cranial nerves 2-12 are grossly intact. No gross focal deficits to casual conversation. Psychiatric: Appropriate mood and affect. Objective Data Vital Signs Vital Signs: Vital Signs - 24 hr 05/18/23 14:00 05/18/23 14:00 05/18/23 21:13 Temperature 96.7 F L 97.9 F Pulse Rate 73 70 Respiratory Rate 20 18 Blood Pressure 126/79 118/69 Pulse Oximetry 97 97 96 Oxygen Delivery Room Air 05/19/23 04:56 05/19/23 08:10 Temperature 97.8 F Pulse Rate 73 Respiratory Rate 18 Blood Pressure 128/75 Pulse Oximetry 94 Oxygen Delivery Room Air Intake/Output Intake/Output: Intake & Output 05/16/23 05/17/23 05/18/23 05/19/23 23:59 23:59 23:59 23:59 Intake Total 2380 5156 4160 620 Balance 2380 5156 4160 620 Meds/Results Medications: Active Medications Generic Name Dose Route Start Last Admin Trade Name Freq PRN Reason Stop Dose Admin Acetaminophen 650 mg 05/14/23 16:00 Acetaminophen 325 Mg Tablet PO Q6H PRN Mild Pain (1-3) or Fever Enoxaparin Sodium 40 mg 05/15/23 09:00 05/19/23 08:13 Enoxaparin 40 Mg/0.4 Ml Syringe SUB-Q 40 mg DAILY NICOLE Administration Furosemide 40 mg 05/17/23 11:40 05/19/23 08:13 Furosemide Inj 40 Mg/4 Ml Vial IV PUSH 40 mg DAILY NICOLE Administration Ceftriaxone Sodium 2 gm in 100 mls @ 200 mls/hr 05/18/23 21:00 05/18/23 21:24 Rocephin 2 Gm/Ns 100 Ml IVPB Infused Q24H NICOLE Infusion Vancomycin HCl 1,750 mg in 500 mls @ 250 mls/hr 05/19/23 01:00 05/19/23 03:17 Vancomycin 1,750 Mg/D5w 500 Ml IVPB Infused Q12H NICOLE Infusion Mupirocin 1 applic 05/17/23 09:00 05/19/23 08:13 Mupirocin 2% Oint 22 Gm Tube TOPICAL 1 applic Q12HR NICOLE Administration Radiology Results: ITS Impressions Chest X-Ray 05/14/23 12:04 IMPRESSION: Cardiomegaly, mild congestive changes Left lower lobe
[2023-05-19 14:00] VITALS: BP 130/76; PULSE 76; RESP 16; TEMP 36.8; O2SAT 95
[2023-05-19 20:10] VITALS: PULSE 76; RESP 18; O2SAT 96
[2023-05-19] MEDS: cefTRIAXone 2 GM/NS 100 ML 2 GM/100 ML BAG IVPB (20:16)
[2023-05-19 21:37] VITALS: BP 131/59; PULSE 76; RESP 18; TEMP 36.7; O2SAT 96
[2023-05-20 06:00] VITALS: BP 132/70; PULSE 71; RESP 16; TEMP 37; O2SAT 91
[2023-05-20] MEDS: ENOXAPARIN 40 MG/0.4 ML SYRINGE SUB-Q (08:58)
[2023-05-20] MEDS: MUPIROCIN 2% OINT 22 GM TUBE 1 APPLIC TOPICAL ×2 (08:58→22:02)
[2023-05-20] MEDS: FUROSEMIDE INJ 40 MG/4 ML VIAL IV PUSH (08:58)
--- NOTE | 2023-05-20 09:00 | PM.IMPN ---
Progress Note: A&P Assessment and Plan (1) Left leg cellulitis: Code(s): L03.116 - Cellulitis of left lower limb Status: Acute (2) Cardiomegaly: Code(s): I51.7 - Cardiomegaly Status: Acute (3) Suspected sleep apnea: Code(s): R29.818 - Other symptoms and signs involving the nervous system Status: Acute Plan Cellulitis of lower extremity Improving pain but erythema still the same patient is allergic to penicillin. patient received Rocephin and Vancomcycin no improvement of cellulitis, stop Rocephin, start cefepime and Flagyl IV, continue vancomycin IV on 05/20 Blood culture remains negative to date Patient has a scattered blisters containing pus on the lower extremity, consult general surgeon for evaluation possible I and D Consult wound care Incidental cardiomegaly with congestive changes. Venous duplex negative. Echocardiogram notable for diastolic grade I dysfunction. BNP 254. Continue diuresis with Lasix. Suspected sleep apnea with morbid obesity apnea link was ordered patient refused testing 05/14/2023. DVT prophylaxis Lovenox Code status full code Subjective Date/time seen: 05/20/23 09:00 Interval history: I saw and examined the patient. Still has significant cellulitis of left lower extremity, scattered blisters with pus, no significant improvement, patient is afebrile Exam Narrative: General: Nontoxic, morbidly obese male sitting in a chair at the side of the bed in no acute distress. HEENT: Normocephalic, atraumatic. PERRL, EOMI. Sclera anicteric. Oral mucosa moist. Crowded oropharynx. Neck: Supple. Exam limited due to neck circumference. No obvious JVD. Respiratory: Respirations are nonlabored. Lung sounds are a bit diminished due to body habitus but are otherwise clear. Cardiovascular: Regular rate and rhythm with S1-S2. Gastrointestinal: Abdomen is morbidly obese, nontender, and nondistended with positive bowel sounds. Skin: Swelling, tender erythema of right lower extremity, there are some blisters containing pus on his anterior leg. The cellulitis is not past the marking that was made on admissin, but no significant improvement Extremities: No cyanosis or clubbing. Legs are large with chronic pitting edema. Radial and pedal pulses intact. Neurological: Alert. Cranial nerves 2-12 are grossly intact. No gross focal deficits to casual conversation. Psychiatric: Appropriate mood and affect. Objective Data Vital Signs Vital Signs: Vital Signs - 24 hr 05/19/23 14:00 05/19/23 21:37 05/19/23 20:10 Temperature 98.3 F 98.0 F Pulse Rate 76 76 76 Respiratory Rate 16 18 18 Blood Pressure 130/76 131/59 L Pulse Oximetry 95 96 96 Oxygen Delivery Room Air 05/20/23 06:00 Temperature 98.6 F Pulse Rate 71 Respiratory Rate 16 Blood Pressure 132/70 Pulse Oximetry 91 Oxygen Delivery Intake/Output Intake/Output: Intake & Output 05/17/23 05/18/23 05/19/23 05/20/23 23:59 23:59 23:59 23:59 Intake Total 5150 4160 1582 Balance 515 4160 1582 Meds/Results Medications: Active Medications Generic Name Dose Route Start Last Admin Trade Name Freq PRN Reason Stop Dose Admin Acetaminophen 650 mg 05/14/23 16:00 Acetaminophen 325 Mg Tablet PO Q6H PRN Mild Pain (1-3) or Fever Enoxaparin Sodium 40 mg 05/15/23 09:00 05/20/23 08:58 Enoxaparin 40 Mg/0.4 Ml Syringe SUB-Q 40 mg DAILY NICOLE Administration Furosemide 40 mg 05/17/23 11:40 05/20/23 08:58 Furosemide Inj 40 Mg/4 Ml Vial IV PUSH 40 mg DAILY NICOLE Administration Ceftriaxone Sodium 2 gm in 100 mls @ 200 mls/hr 05/18/23 21:00 05/19/23 20:16 Rocephin 2 Gm/Ns 100 Ml IVPB 200 mls/hr Q24H NICOLE Administration Vancomycin HCl 1,750 mg in 500 mls @ 250 mls/hr 05/19/23 01:00 05/20/23 01:38 Vancomycin 1,750 Mg/D5w 500 Ml IVPB 250 mls/hr Q12H NICOLE Administration Mupirocin 1 applic 05/17/23 09:00 05/20/23 08:58 Mupirocin 2% Oint 22 Gm
[2023-05-20] MEDS: CEFEPIME 2 GM/NS 50 ML 2 GM/50 ML BAG IVPB ×2 (11:23→22:02)
[2023-05-20 12:28] LABS: Estimated CRCL calculation 108 ml/min; Estimated Glomerular Filt Rate > 60
[2023-05-20 12:44] LABS: Vancomycin Trough 13.7 ug/mL (10.0-20.0)
[2023-05-20] MEDS: metroNIDAZOLE 500 MG/ISO 100ML 500 MG/100 ML BAG 100 MG IVPB ×2 (13:05→22:02)
[2023-05-20 14:00] VITALS: BP 112/66; PULSE 72; RESP 16; TEMP 36.5; O2SAT 100
--- NOTE | 2023-05-20 15:45 | PM.CNGS ---
Assessment and Plan Assessment and plan (1) Left leg cellulitis: Code(s): L03.116 - Cellulitis of left lower limb Status: Acute Assessment and Plan: no drainable fluid collections noted on exam, is seems to be slowly improving as patient reports pain is significantly improved, continue IV antibiotics and serial exams, local wound care for blistering History of Present Illness Consult details Consult date: 05/20/23 Reason for consult: wound care Requesting physician: Monica Padilla MD Narrative: The patient is a 67-year-old male presenting to the emergency department complaining of worsening left lower extremity cellulitis. The patient reports [place]. He fell on his left posterior calf and reported some cellulitis in the area. Of note the patient reports no real open wounds. The patient reports over the next week cellulitis extended despite antibiotics. The patient was seen in urgent care and told to come to the emergency room. The patient has since been admitted and started on IV antibiotics. We are consulted for further wound care. 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 Repeat biopsy of the site 1 week later showed no evidence of neoplasm and several surveillance colonoscopies thereafter have showed no recurrence. Surgical History Surgical History History of colonoscopy with polypectomy (06/2016) Family History Family History Sibling Throat cancer Social History Social History Social History: Surrogate medical decision maker: China Ivey, spouse. Code status: Full code. Smoking status: Never smoker Alcohol intake: never Substance use: never Lack of Transportation: No Lack of Food: Never True Current Housing: I Have Housing Concerned About Future Housing: No Difficulty Paying Gas/Electric Bills: No Difficulty Paying for Meds: No Currently Unemployed: No Education: High School Diploma/GED Difficulty w/ Childcare or Family Care: No Additional living arrangements comments: Lives with spouse in [place]. Additional occupation/education comments: [employer]. Spiritual care concerns: No Meds Home Medications and Allergies Home Medications Medication Instructions Recorded Confirmed Type No Home Medications 05/14/23 05/14/23 History Allergies Allergy/AdvReac Type Severity Reaction Status Date / Time erythromycin base Allergy Severe Swelling Verified 05/14/23 09:33 of Lip/Tongue/Throat Penicillins Allergy Unknown Unknown Verified 05/14/23 09:33 Vital Signs Vital Signs - 24 hr 05/19/23 21:37 05/19/23 20:10 05/20/23 06:00 Temperature 36.7 C 37.0 C Pulse Rate 76 76 71 Respiratory Rate 18 18 16 Blood Pressure 131/59 L 132/70 Pulse Oximetry 96 96 91 Oxygen Delivery Room Air 05/20/23 09:00 05/20/23 14:00 Temperature 36.5 C Pulse Rate 72 Respiratory Rate 16 Blood Pressure 112/66 Pulse Oximetry 100 Oxygen Delivery Room Air Exam Const: General: cooperative, comfortable, no acute distress and obese HENMT: Head: normal to inspection, normocephalic and atraumatic Eyes: General: appearance normal, both eyes and all related structures Neck: Neck: normal visual inspection, full ROM and no lymphadenopathy Resp: Auscultation: clear to auscultation bilaterally Cardio: Rate: regular rate Rhythm: regular rhythm GI: Inspection: normal to inspection and non-distended GI Palp: No abdominal tenderness Skin: Other: large area o
[2023-05-20 20:00] VITALS: PULSE 73; RESP 14; O2SAT 93
[2023-05-20 21:17] VITALS: BP 126/82; PULSE 73; RESP 14; TEMP 36.4; O2SAT 93
[2023-05-21] MEDS: metroNIDAZOLE 500 MG/ISO 100ML 500 MG/100 ML BAG 100 MG IVPB ×3 (04:54→21:35)
[2023-05-21] MEDS: CEFEPIME 2 GM/NS 50 ML 2 GM/50 ML BAG IVPB ×3 (04:55→21:34)
[2023-05-21 05:35] VITALS: BP 110/53; PULSE 73; RESP 14; TEMP 36.1; O2SAT 91
[2023-05-21] MEDS: FUROSEMIDE INJ 40 MG/4 ML VIAL IV PUSH (08:48)
[2023-05-21] MEDS: MUPIROCIN 2% OINT 22 GM TUBE 1 APPLIC TOPICAL ×2 (08:48→21:34)
[2023-05-21] MEDS: ENOXAPARIN 40 MG/0.4 ML SYRINGE SUB-Q (08:48)
--- NOTE | 2023-05-21 09:12 | PM.IMPN ---
Progress Note: A&P Assessment and Plan (1) Left leg cellulitis: Code(s): L03.116 - Cellulitis of left lower limb Status: Acute (2) Cardiomegaly: Code(s): I51.7 - Cardiomegaly Status: Acute (3) Suspected sleep apnea: Code(s): R29.818 - Other symptoms and signs involving the nervous system Status: Acute Plan Cellulitis of lower extremity Improving pain but erythema still the same patient is allergic to penicillin. patient received Rocephin and Vancomcycin no improvement of cellulitis, stop Rocephin, start cefepime and Flagyl IV, continue vancomycin IV on 05/20 Blood culture remains negative to date Patient has scattered blisters containing pus on the lower extremity, consult general surgeon for evaluation, general surgery recommend medical management Consult wound care Cellulitis of left lower extremity is improving today, continue the antibiotics Incidental cardiomegaly with congestive changes. Venous duplex negative. Echocardiogram notable for diastolic grade I dysfunction. BNP 254. Continue diuresis with Lasix. Suspected sleep apnea with morbid obesity apnea link was ordered patient refused testing 05/14/2023. DVT prophylaxis Lovenox Code status full code Subjective Date/time seen: 05/21/23 09:12 Interval history: I saw and examined the patient. Patient still has redness and pain of left lower extremity, patient feels pain is improving, redness and swelling of the left lower extremity is improving Exam Narrative: General: Nontoxic, morbidly obese male sitting in a chair at the side of the bed in no acute distress. HEENT: Normocephalic, atraumatic. PERRL, EOMI. Sclera anicteric. Oral mucosa moist. Crowded oropharynx. Neck: Supple. Exam limited due to neck circumference. No obvious JVD. Respiratory: Respirations are nonlabored. Lung sounds are a bit diminished due to body habitus but are otherwise clear. Cardiovascular: Regular rate and rhythm with S1-S2. Gastrointestinal: Abdomen is morbidly obese, nontender, and nondistended with positive bowel sounds. Skin: Swelling, tender erythema of right lower extremity, there are some blisters containing pus on his anterior leg. The cellulitis is not past the marking that was made on admissin, but no significant improvement Extremities: No cyanosis or clubbing. Legs are large with chronic pitting edema. Radial and pedal pulses intact. Neurological: Alert. Cranial nerves 2-12 are grossly intact. No gross focal deficits to casual conversation. Psychiatric: Appropriate mood and affect. Objective Data Vital Signs Vital Signs: Vital Signs - 24 hr 05/20/23 14:00 05/20/23 21:17 05/20/23 20:00 Temperature 97.7 F 97.5 F L Pulse Rate 72 73 73 Respiratory Rate 16 14 14 Blood Pressure 112/66 126/82 Pulse Oximetry 100 93 93 Oxygen Delivery Room Air 05/21/23 05:35 Temperature 96.9 F L Pulse Rate 73 Respiratory Rate 14 Blood Pressure 110/53 L Pulse Oximetry 91 Oxygen Delivery Intake/Output Intake/Output: Intake & Output 05/18/23 05/19/23 05/20/23 05/21/23 23:59 23:59 23:59 23:59 Intake Total 4160 1582 3238 1000 Balance 4160 1582 3238 1000 Meds/Results Medications: Active Medications Generic Name Dose Route Start Last Admin Trade Name Freq PRN Reason Stop Dose Admin Acetaminophen 650 mg 05/14/23 16:00 Acetaminophen 325 Mg Tablet PO Q6H PRN Mild Pain (1-3) or Fever Enoxaparin Sodium 40 mg 05/15/23 09:00 05/21/23 08:48 Enoxaparin 40 Mg/0.4 Ml Syringe SUB-Q 40 mg DAILY NICOLE Administration Furosemide 40 mg 05/17/23 11:40 05/21/23 08:48 Furosemide Inj 40 Mg/4 Ml Vial IV PUSH 40 mg DAILY NICOLE Administration Vancomycin HCl 1,750 mg in 500 mls @ 250 mls/hr 05/19/23 01:00 05/21/23 01:36 Vancomycin 1,750 Mg/D5w 500 Ml IVPB 250 mls/hr Q12H NICOLE Administration Cefepime HCl 2 gm in 50 mls @ 100 mls/hr 05/20/23 12:00 05/21/23 04:55 Maxipime 2 Gm/Ns 50
[2023-05-21 09:36] LABS: Basophils Absolute Auto 0.1 K/mm3 (0.0-0.1); Basophils Percent Auto 0.7 % (0.2-1.2); Eosinophils Absolute Auto 0.1 K/mm3 (0-0.3); Eosinophils Percent Auto 1.5 % (0-4.4); Hematocrit 45.2 % (42.0-52.0); Hemoglobin 14.1 g/dL (14.0-18.0); Immature Granulocyte Absolute 0.06 K/mm3 (0.00-0.031); Immature Granulocyte Percent A 0.7 % (0-0.5); Lymphocytes Absolute Auto 2.05 K/mm3 (0.9-3.2); Lymphocytes Percent Auto 22.2 % (18.3-44.2); Mean Corpuscular HGB Conc 31.2 g/dl (32-36); Mean Corpuscular Volume 89.7 fl (80-100); Mean Platelet Volume 8.8 fl (7.4-10.4); Monocytes Absolute Auto 0.6 K/mm3 (0.1-0.6); Monocytes Percent Auto 6.3 % (2.6-8.5); Neutrophils Absolute Auto 6.3 K/mm3 (1.3-6.7); Neutrophils Percent Auto 68.6 % (45.5-73.1); Platelet Count Result 306 k/mm3 (150-375); Red Blood Count 5.04 M/mm3 (4.6-6.20); Red Cell Distribution Width 15.4 % (11.5-14.5); White Blood Count 9.2 K/mm3 (4.5-10.0)
[2023-05-21 09:44] LABS: Anion Gap 5 mmol/L (8-16); Blood Urea Nitrogen 13 mg/dL (9-20); Calcium 8.7 mg/dL (8.4-10.2); Carbon Dioxide 34 mmol/L (22-30); Chloride 93 mmol/L (98-107); Estimated CRCL calculation 108 ml/min; Estimated Glomerular Filt Rate > 60; Glucose 136 mg/dL (65-110); Potassium 3.9 mmol/L (3.4-5.0); Sodium 132 mmol/L (137-145)
--- NOTE | 2023-05-21 13:11 | PM.PNGS ---
Progress Note: A&P Assessment and Plan (1) Left leg cellulitis: Code(s): L03.116 - Cellulitis of left lower limb Status: Acute Assessment and Plan: cont local wound care and abx, no drainable areas at this point Subjective Subjective Date/Time Seen: 05/21/23 13:11 Interval history: no acute issues, reports decreased pain, improved mobility Review of Systems Review of Systems: All systems reviewed & are unremarkable except as noted in HPI and below Exam Const: General: cooperative, comfortable, no acute distress and obese Resp: Auscultation: clear to auscultation bilaterally Cardio: Rate: regular rate Rhythm: regular rhythm GI: Inspection: normal to inspection Skin: Other: LLE cellulitis largely unchanged, no drainable areas, mild blistering Objective Data Vital Signs Vital Signs: Vital Signs - 24 hr 05/20/23 14:00 05/20/23 21:17 05/20/23 20:00 Temperature 36.5 C 36.4 C L Pulse Rate 72 73 73 Respiratory Rate 16 14 14 Blood Pressure 112/66 126/82 Pulse Oximetry 100 93 93 Oxygen Delivery Room Air 05/21/23 05:35 05/21/23 08:50 Temperature 36.1 C L Pulse Rate 73 Respiratory Rate 14 Blood Pressure 110/53 L Pulse Oximetry 91 Oxygen Delivery Room Air Intake/Output Intake/Output: Intake & Output 05/18/23 05/19/23 05/20/23 05/21/23 23:59 23:59 23:59 23:59 Intake Total 4160 1582 3238 1790 Balance 4160 1582 3238 1790 Meds/Results Medications: Active Medications Generic Name Dose Route Start Last Admin Trade Name Hemaq PRN Reason Stop Dose Admin Acetaminophen 650 mg 05/14/23 16:00 Acetaminophen 325 Mg Tablet PO Q6H PRN Mild Pain (1-3) or Fever Enoxaparin Sodium 40 mg 05/15/23 09:00 05/21/23 08:48 Enoxaparin 40 Mg/0.4 Ml Syringe SUB-Q 40 mg DAILY NICOLE Administration Furosemide 40 mg 05/17/23 11:40 05/21/23 08:48 Furosemide Inj 40 Mg/4 Ml Vial IV PUSH 40 mg DAILY NICOLE Administration Vancomycin HCl 1,750 mg in 500 mls @ 250 mls/hr 05/19/23 01:00 05/21/23 12:08 Vancomycin 1,750 Mg/D5w 500 Ml IVPB 250 mls/hr Q12H NICOLE Administration Cefepime HCl 2 gm in 50 mls @ 100 mls/hr 05/20/23 12:00 05/21/23 13:00 Maxipime 2 Gm/Ns 50 Ml IVPB 100 mls/hr Q8HR NICOLE Administration Metronidazole 500 mg in 100 mls @ 100 mls/hr 05/20/23 14:00 05/21/23 04:54 Flagyl 500 Mg/Iso Soln 100 Ml IVPB 100 mls/hr Q8HR NICOLE Administration Mupirocin 1 applic 05/17/23 09:00 05/21/23 08:48 Mupirocin 2% Oint 22 Gm Tube TOPICAL 1 applic Q12HR NICOLE Administration Radiology Results: ITS Impressions Chest X-Ray 05/14/23 12:04 IMPRESSION: Cardiomegaly, mild congestive changes Left lower lobe infiltrate or atelectasis Venous Doppler Study 05/15/23 15:28 IMPRESSION: Right peroneal veins not visualized. Otherwise patent bilateral lower extremity veins without evidence of deep venous thrombosis. Labs Labs: Laboratory Results - last 24 hr 05/21/23 09:22 WBC 9.2 RBC 5.04 Hgb 14.1 Hct 45.2 MCV 89.7 MCH 28.0 MCHC 31.2 L RDW 15.4 H Plt Count 306 MPV 8.8 Immature Gran % (Auto) 0.7 H Neut % (Auto) 68.6 Lymph % (Auto) 22.2 [place] % (Auto) 6.3 Eos % (Auto) 1.5 Baso % (Auto) 0.7 Lymph # (Auto) 2.05 [place] # (Auto) 0.6 Eos # (Auto) 0.1 Baso # (Auto) 0.1 Abs Immat Gran (auto) 0.06 H Absolute Neuts (auto) 6.3 Absolute Nucleated RBC 0.0 Nucleated RBC % 0.0 Sodium 132 L Potassium 3.9 Chloride 93 L Carbon Dioxide 34 H Anion Gap 5 L BUN 13 Creatinine 1.00 Estim Creat Clear Calc 108 Estimated GFR > 60 Glucose 136 H Calcium 8.7
[2023-05-21 14:00] VITALS: BP 126/54; PULSE 73; RESP 18; TEMP 36.6; O2SAT 95
[2023-05-21 20:00] VITALS: PULSE 76; RESP 20; O2SAT 95
[2023-05-21 21:57] VITALS: BP 135/74; PULSE 76; RESP 20; TEMP 36.6; O2SAT 95
[2023-05-22] MEDS: metroNIDAZOLE 500 MG/ISO 100ML 500 MG/100 ML BAG 100 MG IVPB ×3 (05:27→23:20)
[2023-05-22] MEDS: CEFEPIME 2 GM/NS 50 ML 2 GM/50 ML BAG IVPB ×3 (05:28→21:27)
[2023-05-22 06:00] VITALS: BP 120/73; PULSE 70; RESP 20; TEMP 36.4; O2SAT 92
--- NOTE | 2023-05-22 08:12 | PM.IMPN ---
Progress Note: A&P Assessment and Plan (1) Left leg cellulitis: Code(s): L03.116 - Cellulitis of left lower limb Status: Acute (2) Cardiomegaly: Code(s): I51.7 - Cardiomegaly Status: Acute (3) Suspected sleep apnea: Code(s): R29.818 - Other symptoms and signs involving the nervous system Status: Acute Plan Cellulitis of lower extremity Improving pain but erythema still the same patient is allergic to penicillin. patient received Rocephin and Vancomcycin no improvement of cellulitis, stop Rocephin, start cefepime and Flagyl IV, continue vancomycin IV on 05/20 Blood culture remains negative to date Patient has scattered blisters containing pus on the lower extremity, consult general surgeon for evaluation, general surgery recommend medical management Consult wound care Cellulitis of left lower extremity continue to improve, continue the antibiotics Incidental cardiomegaly with congestive changes. Venous duplex negative. Echocardiogram notable for diastolic grade I dysfunction. BNP 254. Continue diuresis with Lasix. Suspected sleep apnea with morbid obesity apnea link was ordered patient refused testing 05/14/2023. DVT prophylaxis Lovenox Code status full code Subjective Date/time seen: 05/22/23 08:12 Interval history: I saw and examined the patient. Cellulitis continue improve, pain is improving, patient is afebrile Exam Narrative: General: Nontoxic, morbidly obese male sitting in a chair at the side of the bed in no acute distress. HEENT: Normocephalic, atraumatic. PERRL, EOMI. Sclera anicteric. Oral mucosa moist. Crowded oropharynx. Neck: Supple. Exam limited due to neck circumference. No obvious JVD. Respiratory: Respirations are nonlabored. Lung sounds are a bit diminished due to body habitus but are otherwise clear. Cardiovascular: Regular rate and rhythm with S1-S2. Gastrointestinal: Abdomen is morbidly obese, nontender, and nondistended with positive bowel sounds. Skin: Swelling, tender erythema of right lower extremity, cellulitis it is subsiding Extremities: No cyanosis or clubbing. Legs are large with chronic pitting edema. Radial and pedal pulses intact. Neurological: Alert. Cranial nerves 2-12 are grossly intact. No gross focal deficits to casual conversation. Psychiatric: Appropriate mood and affect. Objective Data Vital Signs Vital Signs: Vital Signs - 24 hr 05/21/23 08:50 05/21/23 14:00 05/21/23 21:57 Temperature 97.9 F 97.9 F Pulse Rate 73 76 Respiratory Rate 18 20 Blood Pressure 126/54 L 135/74 Pulse Oximetry 95 95 Oxygen Delivery Room Air 05/21/23 20:00 05/22/23 06:00 Temperature 97.6 F Pulse Rate 76 70 Respiratory Rate 20 20 Blood Pressure 120/73 Pulse Oximetry 95 92 Oxygen Delivery Room Air Intake/Output Intake/Output: Intake & Output 05/19/23 05/20/23 05/21/23 05/22/23 23:59 23:59 23:59 23:59 Intake Total 1582 3238 3130 300 Balance 1582 3238 3130 300 Meds/Results Medications: Active Medications Generic Name Dose Route Start Last Admin Trade Name Freq PRN Reason Stop Dose Admin Acetaminophen 650 mg 05/14/23 16:00 Acetaminophen 325 Mg Tablet PO Q6H PRN Mild Pain (1-3) or Fever Enoxaparin Sodium 40 mg 05/15/23 09:00 05/21/23 08:48 Enoxaparin 40 Mg/0.4 Ml Syringe SUB-Q 40 mg DAILY NICOLE Administration Furosemide 40 mg 05/17/23 11:40 05/21/23 08:48 Furosemide Inj 40 Mg/4 Ml Vial IV PUSH 40 mg DAILY NICOLE Administration Vancomycin HCl 1,750 mg in 500 mls @ 250 mls/hr 05/19/23 01:00 05/22/23 01:15 Vancomycin 1,750 Mg/D5w 500 Ml IVPB 150 mls/hr Q12H NICOLE Administration Cefepime HCl 2 gm in 50 mls @ 100 mls/hr 05/20/23 12:00 05/22/23 05:28 Maxipime 2 Gm/Ns 50 Ml IVPB 100 mls/hr Q8HR NICOLE Administration Metronidazole 500 mg in 100 mls @ 100 mls/hr 05/20/23 14:00 05/22/23 05:27 Flagyl 500 Mg/Iso Soln 100 Ml IVPB 100 mls/hr Q8HR NICOLE
[2023-05-22] MEDS: FUROSEMIDE INJ 40 MG/4 ML VIAL IV PUSH (08:30)
[2023-05-22] MEDS: ENOXAPARIN 40 MG/0.4 ML SYRINGE SUB-Q (08:30)
[2023-05-22 08:48] LABS: Basophils Percent Auto 0.5 % (0.2-1.2); Eosinophils Absolute Auto 0.2 K/mm3 (0-0.3); Eosinophils Percent Auto 2.4 % (0-4.4); Hematocrit 42.7 % (42.0-52.0); Hemoglobin 13.3 g/dL (14.0-18.0); Immature Granulocyte Absolute 0.03 K/mm3 (0.00-0.031); Immature Granulocyte Percent A 0.4 % (0-0.5); Lymphocytes Absolute Auto 1.37 K/mm3 (0.9-3.2); Lymphocytes Percent Auto 18.4 % (18.3-44.2); Mean Corpuscular HGB Conc 31.1 g/dl (32-36); Mean Corpuscular Hemoglobin 28.1 pg (26-34); Mean Corpuscular Volume 90.1 fl (80-100); Mean Platelet Volume 9.4 fl (7.4-10.4); Monocytes Absolute Auto 0.4 K/mm3 (0.1-0.6); Monocytes Percent Auto 5.5 % (2.6-8.5); Neutrophils Absolute Auto 5.4 K/mm3 (1.3-6.7); Neutrophils Percent Auto 72.8 % (45.5-73.1); Platelet Count Result 264 k/mm3 (150-375); Red Blood Count 4.74 M/mm3 (4.6-6.20); Red Cell Distribution Width 15.1 % (11.5-14.5); White Blood Count 7.4 K/mm3 (4.5-10.0)
[2023-05-22 08:58] LABS: Anion Gap 5 mmol/L (8-16); Blood Urea Nitrogen 14 mg/dL (9-20); Calcium 8.4 mg/dL (8.4-10.2); Carbon Dioxide 31 mmol/L (22-30); Chloride 94 mmol/L (98-107); Estimated CRCL calculation 108 ml/min; Estimated Glomerular Filt Rate > 60; Glucose 184 mg/dL (65-110); Potassium 3.8 mmol/L (3.4-5.0); Sodium 130 mmol/L (137-145)
--- NOTE | 2023-05-22 09:39 | PM.PNGS ---
Progress Note: A&P Assessment and Plan (1) Left leg cellulitis: Code(s): L03.116 - Cellulitis of left lower limb Status: Acute Assessment and Plan: improving, cont local wound care, cont abx, no acute surgical issues, will s/o, call c ?s, issues Subjective Subjective Date/Time Seen: 05/22/23 09:39 Interval history: no acute issues Review of Systems Review of Systems: All systems reviewed & are unremarkable except as noted in HPI and below Exam Const: General: cooperative, comfortable, no acute distress and obese Resp: Auscultation: clear to auscultation bilaterally Cardio: Rate: regular rate Rhythm: regular rhythm GI: Inspection: normal to inspection Skin: Other: LLE - cellulitis and edema improving, no fluctuance, good ROM Objective Data Vital Signs Vital Signs: Vital Signs - 24 hr 05/21/23 14:00 05/21/23 21:57 05/21/23 20:00 Temperature 36.6 C 36.6 C Pulse Rate 73 76 76 Respiratory Rate 18 20 20 Blood Pressure 126/54 L 135/74 Pulse Oximetry 95 95 95 Oxygen Delivery Room Air 05/22/23 06:00 05/22/23 08:30 Temperature 36.4 C Pulse Rate 70 Respiratory Rate 20 Blood Pressure 120/73 Pulse Oximetry 92 Oxygen Delivery Room Air Intake/Output Intake/Output: Intake & Output 05/19/23 05/20/23 05/21/23 05/22/23 23:59 23:59 23:59 23:59 Intake Total 1582 3238 3130 418 Balance 1582 3238 3130 418 Meds/Results Medications: Active Medications Generic Name Dose Route Start Last Admin Trade Name Freq PRN Reason Stop Dose Admin Acetaminophen 650 mg 05/14/23 16:00 Acetaminophen 325 Mg Tablet PO Q6H PRN Mild Pain (1-3) or Fever Enoxaparin Sodium 40 mg 05/15/23 09:00 05/22/23 08:30 Enoxaparin 40 Mg/0.4 Ml Syringe SUB-Q 40 mg DAILY NICOLE Administration Furosemide 40 mg 05/17/23 11:40 05/22/23 08:30 Furosemide Inj 40 Mg/4 Ml Vial IV PUSH 40 mg DAILY NICOLE Administration Vancomycin HCl 1,750 mg in 500 mls @ 250 mls/hr 05/19/23 01:00 05/22/23 01:15 Vancomycin 1,750 Mg/D5w 500 Ml IVPB 150 mls/hr Q12H NICOLE Administration Cefepime HCl 2 gm in 50 mls @ 100 mls/hr 05/20/23 12:00 05/22/23 05:28 Maxipime 2 Gm/Ns 50 Ml IVPB 100 mls/hr Q8HR NICOLE Administration Metronidazole 500 mg in 100 mls @ 100 mls/hr 05/20/23 14:00 05/22/23 05:27 Flagyl 500 Mg/Iso Soln 100 Ml IVPB 100 mls/hr Q8HR NICOLE Administration Mupirocin 1 applic 05/17/23 09:00 05/21/23 21:34 Mupirocin 2% Oint 22 Gm Tube TOPICAL 1 applic Q12HR NICOLE Administration Radiology Results: ITS Impressions Chest X-Ray 05/14/23 12:04 IMPRESSION: Cardiomegaly, mild congestive changes Left lower lobe infiltrate or atelectasis Venous Doppler Study 05/15/23 15:28 IMPRESSION: Right peroneal veins not visualized. Otherwise patent bilateral lower extremity veins without evidence of deep venous thrombosis. Labs Labs: Laboratory Results - last 24 hr 05/21/23 05/22/23 09:22 08:26 WBC 9.2 7.4 RBC 5.04 4.74 Hgb 14.1 13.3 L Hct 45.2 42.7 MCV 89.7 90.1 MCH 28.0 28.1 MCHC 31.2 L 31.1 L RDW 15.4 H 15.1 H Plt Count 306 264 MPV 8.8 9.4 Immature Gran % (Auto) 0.7 H 0.4 Neut % (Auto) 68.6 72.8 Lymph % (Auto) 22.2 18.4 [place] % (Auto) 6.3 5.5 Eos % (Auto) 1.5 2.4 Baso % (Auto) 0.7 0.5 Lymph # (Auto) 2.05 1.37 [place] # (Auto) 0.6 0.4 Eos # (Auto) 0.1 0.2 Baso # (Auto) 0.1 0.0 Abs Immat Gran (auto) 0.06 H 0.03 Absolute Neuts (auto) 6.3 5.4 Absolute Nucleated RBC 0.0 0.0 Nucleated RBC % 0.0 0.0 Sodium 132 L 130 L Potassium 3.9 3.8 Chloride 93 L 94 L Carbon Dioxide 34 H 31 H Anion Gap 5 L 5 L BUN 13 14 Creatinine 1.00 1.00 Estim Creat Clear Calc 108 108 Estimated GFR > 60 > 60 Glucose 136 H 184 H Calcium 8.7 8.4
[2023-05-22] MEDS: MUPIROCIN 2% OINT 22 GM TUBE 1 APPLIC TOPICAL ×2 (10:24→21:13)
[2023-05-22 14:00] VITALS: BP 108/61; PULSE 72; RESP 20; TEMP 36.4; O2SAT 93
[2023-05-22 20:00] VITALS: O2SAT 95
[2023-05-22 21:55] VITALS: BP 136/74; PULSE 77; RESP 18; TEMP 36.8; O2SAT 95
[2023-05-23] MEDS: CEFEPIME 2 GM/NS 50 ML 2 GM/50 ML BAG IVPB ×3 (05:01→23:46)
[2023-05-23] MEDS: metroNIDAZOLE 500 MG/ISO 100ML 500 MG/100 ML BAG 100 MG IVPB ×3 (05:40→23:46)
[2023-05-23 05:56] VITALS: BP 111/55; PULSE 72; RESP 18; TEMP 36.4; O2SAT 95
[2023-05-23 07:16] LABS: Basophils Absolute Auto 0.1 K/mm3 (0.0-0.1); Basophils Percent Auto 0.6 % (0.2-1.2); Eosinophils Absolute Auto 0.2 K/mm3 (0-0.3); Eosinophils Percent Auto 2.7 % (0-4.4); Hematocrit 43.8 % (42.0-52.0); Hemoglobin 13.7 g/dL (14.0-18.0); Immature Granulocyte Absolute 0.06 K/mm3 (0.00-0.031); Immature Granulocyte Percent A 0.7 % (0-0.5); Lymphocytes Absolute Auto 1.93 K/mm3 (0.9-3.2); Lymphocytes Percent Auto 22.3 % (18.3-44.2); Mean Corpuscular HGB Conc 31.3 g/dl (32-36); Mean Corpuscular Hemoglobin 28.3 pg (26-34); Mean Corpuscular Volume 90.5 fl (80-100); Mean Platelet Volume 9.4 fl (7.4-10.4); Monocytes Absolute Auto 0.8 K/mm3 (0.1-0.6); Monocytes Percent Auto 8.9 % (2.6-8.5); Neutrophils Absolute Auto 5.6 K/mm3 (1.3-6.7); Neutrophils Percent Auto 64.8 % (45.5-73.1); Platelet Count Result 291 k/mm3 (150-375); Red Blood Count 4.84 M/mm3 (4.6-6.20); Red Cell Distribution Width 15.3 % (11.5-14.5); White Blood Count 8.7 K/mm3 (4.5-10.0)
[2023-05-23 07:30] LABS: Anion Gap 5 mmol/L (8-16); Blood Urea Nitrogen 14 mg/dL (9-20); Calcium 8.7 mg/dL (8.4-10.2); Carbon Dioxide 34 mmol/L (22-30); Chloride 94 mmol/L (98-107); Estimated CRCL calculation 108 ml/min; Estimated Glomerular Filt Rate > 60; Glucose 121 mg/dL (65-110); Potassium 4.1 mmol/L (3.4-5.0); Sodium 133 mmol/L (137-145)
--- NOTE | 2023-05-23 08:33 | PM.IMPN ---
Progress Note: A&P Assessment and Plan (1) Left leg cellulitis: Code(s): L03.116 - Cellulitis of left lower limb Status: Acute (2) Cardiomegaly: Code(s): I51.7 - Cardiomegaly Status: Acute (3) Suspected sleep apnea: Code(s): R29.818 - Other symptoms and signs involving the nervous system Status: Acute Plan Cellulitis of lower extremity Improving pain but erythema still the same patient is allergic to penicillin. patient received Rocephin and Vancomcycin no improvement of cellulitis, stop Rocephin, started cefepime and Flagyl IV, continue vancomycin IV on 05/20 Blood culture remains negative to date Patient has scattered blisters containing pus on the lower extremity, consult general surgeon for evaluation, general surgery recommend medical management Consult wound care Cellulitis of left lower extremity continue to improve, continue the antibiotics Incidental cardiomegaly with congestive changes. Venous duplex negative. Echocardiogram notable for diastolic grade I dysfunction. BNP 254. Continue diuresis with Lasix 40 mg iv daily. Suspected sleep apnea with morbid obesity apnea link was ordered patient refused testing 05/14/2023. DVT prophylaxis Lovenox Code status full code Subjective Date/time seen: 05/23/23 08:33 Interval history: I saw and examined the patient. Has no new issue or events overnight, cellulitis continue improve, pain is improving, patient is afebrile Exam Narrative: General: Nontoxic, morbidly obese male sitting in a chair at the side of the bed in no acute distress. HEENT: Normocephalic, atraumatic. PERRL, EOMI. Sclera anicteric. Oral mucosa moist. Crowded oropharynx. Neck: Supple. Exam limited due to neck circumference. No obvious JVD. Respiratory: Respirations are nonlabored. Lung sounds are a bit diminished due to body habitus but are otherwise clear. Cardiovascular: Regular rate and rhythm with S1-S2. Gastrointestinal: Abdomen is morbidly obese, nontender, and nondistended with positive bowel sounds. Skin: Swelling, tender erythema of right lower extremity, cellulitis it is subsiding Extremities: No cyanosis or clubbing. Legs are large with chronic pitting edema. Radial and pedal pulses intact. Neurological: Alert. Cranial nerves 2-12 are grossly intact. No gross focal deficits to casual conversation. Psychiatric: Appropriate mood and affect. Objective Data Vital Signs Vital Signs: Vital Signs - 24 hr 05/22/23 14:00 05/22/23 21:55 05/22/23 20:00 Temperature 97.5 F L 98.2 F Pulse Rate 72 77 Respiratory Rate 20 18 Blood Pressure 108/61 136/74 Pulse Oximetry 93 95 95 Oxygen Delivery Room Air 05/23/23 05:56 Temperature 97.6 F Pulse Rate 72 Respiratory Rate 18 Blood Pressure 111/55 L Pulse Oximetry 95 Oxygen Delivery Intake/Output Intake/Output: Intake & Output 05/20/23 05/21/23 05/22/23 05/23/23 23:59 23:59 23:59 23:59 Intake Total 3238 3130 2508 1420 Balance 3238 3130 2508 1420 Meds/Results Medications: Active Medications Generic Name Dose Route Start Last Admin Trade Name Freq PRN Reason Stop Dose Admin Acetaminophen 650 mg 05/14/23 16:00 Acetaminophen 325 Mg Tablet PO Q6H PRN Mild Pain (1-3) or Fever Enoxaparin Sodium 40 mg 05/15/23 09:00 05/22/23 08:30 Enoxaparin 40 Mg/0.4 Ml Syringe SUB-Q 40 mg DAILY NICOLE Administration Furosemide 40 mg 05/17/23 11:40 05/22/23 08:30 Furosemide Inj 40 Mg/4 Ml Vial IV PUSH 40 mg DAILY NICOLE Administration Vancomycin HCl 1,750 mg in 500 mls @ 250 mls/hr 05/19/23 01:00 05/23/23 03:10 Vancomycin 1,750 Mg/D5w 500 Ml IVPB Infused Q12H NICOLE Infusion Cefepime HCl 2 gm in 50 mls @ 100 mls/hr 05/20/23 12:00 05/23/23 05:31 Maxipime 2 Gm/Ns 50 Ml IVPB Infused Q8HR NICOLE Infusion Metronidazole 500 mg in 100 mls @ 100 mls/hr 05/20/23 14:00 05/23/23 05:40 Flagyl 500 Mg/Iso Soln 100 Ml IVPB 100 mls/hr
[2023-05-23] MEDS: FUROSEMIDE INJ 40 MG/4 ML VIAL IV PUSH (08:55)
[2023-05-23] MEDS: ENOXAPARIN 40 MG/0.4 ML SYRINGE SUB-Q (08:55)
[2023-05-23] MEDS: MUPIROCIN 2% OINT 22 GM TUBE 1 APPLIC TOPICAL ×2 (08:56→21:00)
--- NOTE | 2023-05-23 11:36 | PCNWS ---
Weekly nutritional screen. Patient is tolerating current heart healthy diet with adequate intake at 100% of meals. No weight loss reported. No nutritional needs at this time.
[2023-05-23 11:53] LABS: Hemoglobin A1C 6.9 % (<5.7)
[2023-05-23 12:54] LABS: Vancomycin Trough 17.9 ug/mL (10.0-20.0)
[2023-05-23 14:13] VITALS: BP 121/54; PULSE 74; RESP 18; TEMP 35.9; O2SAT 96
[2023-05-23 21:41] VITALS: BP 121/76; PULSE 81; RESP 20; TEMP 36.3; O2SAT 94
[2023-05-24 05:57] VITALS: BP 116/78; PULSE 72; RESP 18; TEMP 36.3; O2SAT 93
[2023-05-24] MEDS: metroNIDAZOLE 500 MG/ISO 100ML 500 MG/100 ML BAG 100 MG IVPB ×3 (06:41→21:38)
[2023-05-24] MEDS: CEFEPIME 2 GM/NS 50 ML 2 GM/50 ML BAG IVPB ×3 (06:41→21:38)
[2023-05-24] MEDS: ENOXAPARIN 40 MG/0.4 ML SYRINGE SUB-Q (09:19)
[2023-05-24] MEDS: FUROSEMIDE INJ 40 MG/4 ML VIAL IV PUSH (09:20)
[2023-05-24] MEDS: MUPIROCIN 2% OINT 22 GM TUBE 1 APPLIC TOPICAL ×2 (09:20→21:00)
--- NOTE | 2023-05-24 09:26 | PM.IMPN ---
Progress Note: A&P Assessment and Plan (1) Left leg cellulitis: Code(s): L03.116 - Cellulitis of left lower limb Status: Acute (2) Cardiomegaly: Code(s): I51.7 - Cardiomegaly Status: Acute (3) Suspected sleep apnea: Code(s): R29.818 - Other symptoms and signs involving the nervous system Status: Acute Plan Cellulitis of lower extremity Improving pain but erythema still the same patient is allergic to penicillin. patient received Rocephin and Vancomcycin no improvement of cellulitis, stop Rocephin, started cefepime and Flagyl IV, continue vancomycin IV on 05/20 Blood culture remains negative to date Patient has scattered blisters containing pus on the lower extremity, consult general surgeon for evaluation, general surgery recommend medical management Consult wound care Cellulitis of left lower extremity continue to improve, continue the antibiotics Incidental cardiomegaly with congestive changes. Venous duplex negative. Echocardiogram notable for diastolic grade I dysfunction. BNP 254. Continue diuresis with Lasix 40 mg iv daily. Suspected sleep apnea with morbid obesity apnea link was ordered patient refused testing 05/14/2023. DVT prophylaxis Lovenox Code status full code May switch to oral antibiotics in 48 hours Subjective Date/time seen: 05/24/23 09:26 Interval history: I saw and examined the patient. Patient feels better today, cellulitis continue to improve, pain is improving, patient is afebrile Exam Narrative: General: Nontoxic, morbidly obese male sitting in a chair at the side of the bed in no acute distress. HEENT: Normocephalic, atraumatic. PERRL, EOMI. Sclera anicteric. Oral mucosa moist. Crowded oropharynx. Neck: Supple. Exam limited due to neck circumference. No obvious JVD. Respiratory: Respirations are nonlabored. Lung sounds are a bit diminished due to body habitus but are otherwise clear. Cardiovascular: Regular rate and rhythm with S1-S2. Gastrointestinal: Abdomen is morbidly obese, nontender, and nondistended with positive bowel sounds. Skin: Swelling, tender erythema of right lower extremity, cellulitis it is subsiding Extremities: No cyanosis or clubbing. Legs are large with chronic pitting edema. Radial and pedal pulses intact. Neurological: Alert. Cranial nerves 2-12 are grossly intact. No gross focal deficits to casual conversation. Psychiatric: Appropriate mood and affect. Objective Data Vital Signs Vital Signs: Vital Signs - 24 hr 05/23/23 14:13 05/23/23 21:41 05/24/23 05:57 Temperature 96.7 F L 97.4 F L 97.4 F L Pulse Rate 74 81 72 Respiratory Rate 18 20 18 Blood Pressure 121/54 L 121/76 116/78 Pulse Oximetry 96 94 93 Intake/Output Intake/Output: Intake & Output 05/21/23 05/22/23 05/23/23 05/24/23 23:59 23:59 23:59 23:59 Intake Total 3130 2508 4040 790 Balance 3130 2508 4040 790 Meds/Results Medications: Active Medications Generic Name Dose Route Start Last Admin Trade Name Freq PRN Reason Stop Dose Admin Acetaminophen 650 mg 05/14/23 16:00 Acetaminophen 325 Mg Tablet PO Q6H PRN Mild Pain (1-3) or Fever Enoxaparin Sodium 40 mg 05/15/23 09:00 05/23/23 08:55 Enoxaparin 40 Mg/0.4 Ml Syringe SUB-Q 40 mg DAILY NICOLE Administration Furosemide 40 mg 05/17/23 11:40 05/23/23 08:55 Furosemide Inj 40 Mg/4 Ml Vial IV PUSH 40 mg DAILY NICOLE Administration Cefepime HCl 2 gm in 50 mls @ 100 mls/hr 05/20/23 12:00 05/24/23 06:41 Maxipime 2 Gm/Ns 50 Ml IVPB 100 mls/hr Q8HR NICOLE Administration Metronidazole 500 mg in 100 mls @ 100 mls/hr 05/20/23 14:00 05/24/23 06:41 Flagyl 500 Mg/Iso Soln 100 Ml IVPB 100 mls/hr Q8HR NICOLE Administration Vancomycin HCl 2,000 mg in 500 mls @ 250 mls/hr 05/23/23 19:00 05/23/23 20:42 Vancomycin 2,000 Mg/D5w 500 Ml IVPB 250 mls/hr Q24H NICOLE Administration Mupirocin 1 applic 05/17/23 09:00 05/23/23 21:00 Candi
[2023-05-24 12:26] VITALS: PULSE 81; O2SAT 94
[2023-05-24 14:00] VITALS: BP 124/63; PULSE 74; RESP 22; TEMP 35.6; O2SAT 95
--- NOTE | 2023-05-24 17:22 | PC.NURSE ---
Pt is A&O4 male who has participated and contributed in plan of care. Pt has been up independent in the room. Pt had dressing changed this AM and this evening. Pt tolerated well. Pt received IV abx. Pt denies any pain and expresses no needs. Will continue to monitor pt.
[2023-05-24 22:00] VITALS: BP 140/72; PULSE 76; RESP 16; TEMP 36.2; O2SAT 95
[2023-05-25] MEDS: CEFEPIME 2 GM/NS 50 ML 2 GM/50 ML BAG IVPB ×3 (05:46→21:08)
[2023-05-25] MEDS: metroNIDAZOLE 500 MG/ISO 100ML 500 MG/100 ML BAG 100 MG IVPB ×3 (05:47→21:08)
[2023-05-25 06:00] VITALS: BP 136/71; PULSE 75; RESP 14; TEMP 35.6; O2SAT 94
[2023-05-25] MEDS: FUROSEMIDE INJ 40 MG/4 ML VIAL IV PUSH (09:50)
[2023-05-25] MEDS: ENOXAPARIN 40 MG/0.4 ML SYRINGE SUB-Q (09:51)
[2023-05-25 14:00] VITALS: BP 129/82; PULSE 67; RESP 20; TEMP 36.2; O2SAT 96
--- NOTE | 2023-05-25 15:32 | PM.IMPN ---
Progress Note: A&P Assessment and Plan (1) Left leg cellulitis: Code(s): L03.116 - Cellulitis of left lower limb Status: Acute (2) Cardiomegaly: Code(s): I51.7 - Cardiomegaly Status: Acute (3) Suspected sleep apnea: Code(s): R29.818 - Other symptoms and signs involving the nervous system Status: Acute Plan Cellulitis of lower extremity Improving pain but erythema still the same patient is allergic to penicillin. patient received Rocephin and Vancomcycin no improvement of cellulitis, stop Rocephin, started cefepime and Flagyl IV, continue vancomycin IV on 05/20 Blood culture remains negative to date Patient has scattered blisters containing pus on the lower extremity, consult general surgeon for evaluation, general surgery recommend medical management Consult wound care Cellulitis of left lower extremity continue to improve, continue the antibiotics IV for another 1-2 days time before DC Incidental cardiomegaly with congestive changes. Venous duplex negative. Echocardiogram notable for diastolic grade I dysfunction. BNP 254. Continue diuresis with Lasix 40 mg iv daily. Suspected sleep apnea with morbid obesity apnea link was ordered patient refused testing 05/14/2023. DVT prophylaxis Lovenox Code status full code May switch to oral antibiotics in 48 hours Subjective Date/time seen: 05/25/23 15:32 Interval history: I saw and examined the patient. Patient feels better today, cellulitis continue to improve, pain is improving, swelling better. 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 HEENT: Normocephalic, atraumatic. PERRL, EOMI. Sclera anicteric. Oral mucosa moist. Crowded oropharynx. Neck: Supple. Exam limited due to neck circumference. No obvious JVD. Respiratory: Respirations are nonlabored. Lung sounds are a bit diminished due to body habitus but are otherwise clear. Cardiovascular: Regular rate and rhythm with S1-S2. Gastrointestinal: Abdomen is morbidly obese, nontender, and nondistended with positive bowel sounds. Skin: Swelling, tender erythema of right lower extremity, cellulitis it is subsiding Extremities: No cyanosis or clubbing. Legs are large with chronic pitting edema. Radial and pedal pulses intact. Neurological: Alert. Cranial nerves 2-12 are grossly intact. No gross focal deficits to casual conversation. Psychiatric: Appropriate mood and affect. Objective Data Vital Signs Vital Signs: Vital Signs - 24 hr 05/24/23 22:00 05/25/23 06:00 05/25/23 08:00 Temperature 36.2 C L 35.6 C L Pulse Rate 76 75 Respiratory Rate 16 14 Blood Pressure 140/72 136/71 Pulse Oximetry 95 94 Oxygen Delivery Room Air 05/25/23 14:00 Temperature 36.2 C L Pulse Rate 67 Respiratory Rate 20 Blood Pressure 129/82 Pulse Oximetry 96 Oxygen Delivery Intake/Output Intake/Output: Intake & Output 05/22/23 05/23/23 05/24/23 05/25/23 23:59 23:59 23:59 23:59 Intake Total 2508 4540 2094 1390 Balance 2508 4540 2094 1390 Meds/Results Medications: Active Medications Generic Name Dose Route Start Last Admin Trade Name Freq PRN Reason Stop Dose Admin Acetaminophen 650 mg 05/14/23 16:00 Acetaminophen 325 Mg Tablet PO Q6H PRN Mild Pain (1-3) or Fever Enoxaparin Sodium 40 mg 05/15/23 09:00 05/25/23 09:51 Enoxaparin 40 Mg/0.4 Ml Syringe SUB-Q 40 mg DAILY NICOLE Administration Furosemide 40 mg 05/17/23 11:40 05/25/23 09:50 Furosemide Inj 40 Mg/4 Ml Vial IV PUSH 40 mg DAILY NICOLE Administration Cefepime HCl 2 gm in 50 mls @ 100 mls/hr 05/20/23 12:00 05/25/23 14:10 Maxipime 2 Gm/Ns 50 Ml IVPB Infused Q8HR NICOLE Infusion Metronidazole 500 mg in 100 mls
[2023-05-25] MEDS: MUPIROCIN 2% OINT 22 GM TUBE 1 APPLIC TOPICAL (16:54)
[2023-05-25 22:00] VITALS: BP 136/84; PULSE 77; RESP 14; TEMP 35.6; O2SAT 94
[2023-05-26] MEDS: CEFEPIME 2 GM/NS 50 ML 2 GM/50 ML BAG IVPB ×3 (05:38→22:52)
[2023-05-26] MEDS: metroNIDAZOLE 500 MG/ISO 100ML 500 MG/100 ML BAG 100 MG IVPB ×2 (05:38→13:23)
[2023-05-26 06:00] VITALS: BP 152/78; PULSE 74; RESP 16; TEMP 36.3; O2SAT 93
[2023-05-26 06:26] LABS: Hematocrit 44.5 % (42.0-52.0); Hemoglobin 13.6 g/dL (14.0-18.0); Mean Corpuscular HGB Conc 30.6 g/dl (32-36); Mean Corpuscular Hemoglobin 27.7 pg (26-34); Mean Corpuscular Volume 90.6 fl (80-100); Mean Platelet Volume 9.6 fl (7.4-10.4); Platelet Count Result 241 k/mm3 (150-375); Red Blood Count 4.91 M/mm3 (4.6-6.20); Red Cell Distribution Width 15.6 % (11.5-14.5); White Blood Count 5.9 K/mm3 (4.5-10.0)
[2023-05-26 06:43] LABS: Anion Gap 3 mmol/L (8-16); Blood Urea Nitrogen 14 mg/dL (9-20); Calcium 8.4 mg/dL (8.4-10.2); Carbon Dioxide 32 mmol/L (22-30); Chloride 94 mmol/L (98-107); Estimated CRCL calculation 108 ml/min; Estimated Glomerular Filt Rate > 60; Glucose 123 mg/dL (65-110); Potassium 3.9 mmol/L (3.4-5.0); Sodium 129 mmol/L (137-145)
[2023-05-26 08:21] VITALS: PULSE 74; O2SAT 93
[2023-05-26] MEDS: ENOXAPARIN 40 MG/0.4 ML SYRINGE SUB-Q (09:25)
[2023-05-26] MEDS: FUROSEMIDE INJ 40 MG/4 ML VIAL IV PUSH ×2 (09:25→16:58)
[2023-05-26 14:00] VITALS: BP 133/50; PULSE 77; RESP 18; TEMP 36.3; O2SAT 96
--- NOTE | 2023-05-26 16:19 | PM.IMPN ---
Progress Note: A&P Assessment and Plan (1) Left leg cellulitis: Code(s): L03.116 - Cellulitis of left lower limb Status: Acute (2) Cardiomegaly: Code(s): I51.7 - Cardiomegaly Status: Acute (3) Suspected sleep apnea: Code(s): R29.818 - Other symptoms and signs involving the nervous system Status: Acute Plan Cellulitis of lower extremity Improving pain but erythema still the same. Will do MRI left leg to further evaluate for persistent cellulitis despite adequate antibiotic coverage patient is allergic to penicillin. patient received Rocephin and Vancomcycin no improvement of cellulitis, stop Rocephin, started cefepime and Flagyl IV, continue vancomycin IV on 05/20 Blood culture remains negative to date Patient has scattered blisters containing pus on the lower extremity, consult general surgeon for evaluation, general surgery recommend medical management Consult wound care Incidental cardiomegaly with congestive changes. Venous duplex negative. Echocardiogram notable for diastolic grade I dysfunction. BNP 254. Continue diuresis with Lasix 40 mg iv daily. Will help titrate Lasix to 40 b.i.d. Suspected sleep apnea with morbid obesity apnea link was ordered patient refused testing 05/14/2023. DVT prophylaxis Lovenox Code status full code Subjective Date/time seen: 05/26/23 16:19 Interval history: Patient continues to have redness and swelling in the left lower extremity. His been receiving antibiotics for almost 10 days now. He feels better but still has some oozing blistering. General surgery has been consulted and consult notes were reviewed Review of Systems Review of Systems: All systems reviewed & are unremarkable except as noted in HPI and below Exam Narrative: General: Nontoxic, morbidly obese male sitting in a chair at the side of the bed in no acute distress. HEENT: Normocephalic, atraumatic. PERRL, EOMI. Sclera anicteric. Oral mucosa moist. Crowded oropharynx. Neck: Supple. Exam limited due to neck circumference. No obvious JVD. Respiratory: Respirations are nonlabored. Lung sounds are a bit diminished due to body habitus but are otherwise clear. Cardiovascular: Regular rate and rhythm with S1-S2. Gastrointestinal: Abdomen is morbidly obese, nontender, and nondistended with positive bowel sounds. Skin: Swelling, tender erythema of right lower extremity, cellulitis it is subsiding Extremities: No cyanosis or clubbing. Legs are large with chronic pitting edema. Radial and pedal pulses intact. Neurological: Alert. Cranial nerves 2-12 are grossly intact. No gross focal deficits to casual conversation. Psychiatric: Appropriate mood and affect. Objective Data Vital Signs Vital Signs: Vital Signs - 24 hr 05/25/23 19:50 05/25/23 22:00 05/26/23 06:00 Temperature 96.0 F L 97.3 F L Pulse Rate 77 74 Respiratory Rate 14 16 Blood Pressure 136/84 152/78 H Pulse Oximetry 94 93 Oxygen Delivery Room Air 05/26/23 08:21 05/26/23 08:00 05/26/23 14:00 Temperature 97.3 F L Pulse Rate 74 77 Respiratory Rate 18 Blood Pressure 133/50 L Pulse Oximetry 93 96 Oxygen Delivery Room Air Room Air Intake/Output Intake/Output: Intake & Output 05/23/23 05/24/23 05/25/23 05/26/23 23:59 23:59 23:59 23:59 Intake Total 4540 2094 2158 1280 Balance 4540 2094 2158 1280 Meds/Results Medications: Active Medications Generic Name Dose Route Start Last Admin Trade Name Freq PRN Reason Stop Dose Admin Acetaminophen 650 mg 05/14/23 16:00 Acetaminophen 325 Mg Tablet PO Q6H PRN Mild Pain (1-3) or Fever Enoxaparin Sodium 40 mg 05/15/23 09:00 05/26/23 09:25 Enoxaparin 40 Mg/0.4 Ml Syringe SUB-Q 40 mg DAILY NICOLE Administration Furosemide 40 mg 05/17/23 11:40 05/26/23 09:25 Furosemide Inj 40 Mg/4 Ml Vial IV PUSH 40 mg DAILY NICOLE Administration Cefepime HCl 2 gm in 50 mls @ 100 mls/hr 05/20/23 12:00 10
[2023-05-26] MEDS: MUPIROCIN 2% OINT 22 GM TUBE 1 APPLIC TOPICAL (17:18)
[2023-05-26 18:57] LABS: Vancomycin Trough 7.4 ug/mL (10.0-20.0)
[2023-05-26 19:50] VITALS: PULSE 77; RESP 18; O2SAT 96
[2023-05-26 22:00] VITALS: BP 141/71; PULSE 70; RESP 16; TEMP 35.9; O2SAT 94
[2023-05-26] MEDS: metroNIDAZOLE 250 MG TABLET 500 MG PO (22:52)
[2023-05-27] MEDS: metroNIDAZOLE 250 MG TABLET 500 MG PO (05:10)
[2023-05-27] MEDS: CEFEPIME 2 GM/NS 50 ML 2 GM/50 ML BAG IVPB (05:10)
[2023-05-27 05:58] VITALS: BP 126/76; PULSE 78; RESP 18; TEMP 35.9; O2SAT 93
[2023-05-27 06:36] LABS: Basophils Percent Auto 0.6 % (0.2-1.2); Eosinophils Absolute Auto 0.2 K/mm3 (0-0.3); Hematocrit 41.5 % (42.0-52.0); Hemoglobin 12.9 g/dL (14.0-18.0); Immature Granulocyte Absolute 0.02 K/mm3 (0.00-0.031); Immature Granulocyte Percent A 0.3 % (0-0.5); Lymphocytes Absolute Auto 1.26 K/mm3 (0.9-3.2); Mean Corpuscular HGB Conc 31.1 g/dl (32-36); Mean Platelet Volume 9.5 fl (7.4-10.4); Monocytes Absolute Auto 0.7 K/mm3 (0.1-0.6); Monocytes Percent Auto 11.3 % (2.6-8.5); Neutrophils Absolute Auto 4.1 K/mm3 (1.3-6.7); Neutrophils Percent Auto 64.8 % (45.5-73.1); Platelet Count Result 256 k/mm3 (150-375); Red Blood Count 4.61 M/mm3 (4.6-6.20); Red Cell Distribution Width 15.4 % (11.5-14.5); White Blood Count 6.3 K/mm3 (4.5-10.0)
[2023-05-27 06:45] LABS: Alanine Aminotransferase 30 U/L (6-50); Albumin Level 3.5 g/dL (3.5-5.1); Alkaline Phosphatase 67 U/L (38-126); Anion Gap 4 mmol/L (8-16); Aspartate Amino Transferase 51 U/L (17-59); Bilirubin,Total 0.7 mg/dL (0.2-1.3); Blood Urea Nitrogen 15 mg/dL (9-20); Calcium 8.4 mg/dL (8.4-10.2); Carbon Dioxide 31 mmol/L (22-30); Chloride 95 mmol/L (98-107); Estimated CRCL calculation 108 ml/min; Estimated Glomerular Filt Rate > 60; Glucose 128 mg/dL (65-110); Potassium 3.6 mmol/L (3.4-5.0); Sodium 130 mmol/L (137-145)
[2023-05-27] MEDS: MUPIROCIN 2% OINT 22 GM TUBE 1 APPLIC TOPICAL ×2 (09:46→21:03)
[2023-05-27] MEDS: FUROSEMIDE INJ 40 MG/4 ML VIAL IV PUSH ×2 (09:46→16:35)
[2023-05-27] MEDS: ENOXAPARIN 40 MG/0.4 ML SYRINGE SUB-Q (09:59)
--- NOTE | 2023-05-27 13:02 | PM.IMPN ---
Progress Note: A&P Assessment and Plan (1) Left leg cellulitis: Code(s): L03.116 - Cellulitis of left lower limb Status: Acute (2) Cardiomegaly: Code(s): I51.7 - Cardiomegaly Status: Acute (3) Suspected sleep apnea: Code(s): R29.818 - Other symptoms and signs involving the nervous system Status: Acute Plan Cellulitis of lower extremity Improving pain but erythema still the same. Will do MRI left leg to further evaluate for persistent cellulitis despite adequate antibiotic coverage patient is allergic to penicillin. patient received Rocephin and Vancomcycin no improvement of cellulitis, stop Rocephin, started cefepime and Flagyl IV, continue vancomycin IV on 05/20 Blood culture remains negative to date Patient has scattered blisters containing pus on the lower extremity, consult general surgeon for evaluation, general surgery recommend medical management Consult wound care Will advance her antibiotics for to meropenem and linezolid Incidental cardiomegaly with congestive changes. Venous duplex negative. Echocardiogram notable for diastolic grade I dysfunction. BNP 254. Continue diuresis with Lasix 40 mg iv daily. Will help titrate Lasix to 40 b.i.d. Suspected sleep apnea with morbid obesity apnea link was ordered patient refused testing 05/14/2023. DVT prophylaxis Lovenox Code status full code Subjective Date/time seen: 05/27/23 13:02 Interval history: Redness continues. Otherwise no complaints feels better overall MRI reviewed Review of Systems Review of Systems: All systems reviewed & are unremarkable except as noted in HPI and below Exam Narrative: General: Nontoxic, morbidly obese male sitting in a chair at the side of the bed in no acute distress. HEENT: Normocephalic, atraumatic. PERRL, EOMI. Sclera anicteric. Oral mucosa moist. Crowded oropharynx. Neck: Supple. Exam limited due to neck circumference. No obvious JVD. Respiratory: Respirations are nonlabored. Lung sounds are a bit diminished due to body habitus but are otherwise clear. Cardiovascular: Regular rate and rhythm with S1-S2. Gastrointestinal: Abdomen is morbidly obese, nontender, and nondistended with positive bowel sounds. Skin: Swelling, tender erythema of right lower extremity, cellulitis it is subsiding Extremities: No cyanosis or clubbing. Legs are large with chronic pitting edema. Radial and pedal pulses intact. Neurological: Alert. Cranial nerves 2-12 are grossly intact. No gross focal deficits to casual conversation. Psychiatric: Appropriate mood and affect. Objective Data Vital Signs Vital Signs: Vital Signs - 24 hr 05/26/23 14:00 05/26/23 19:50 05/26/23 22:00 Temperature 97.3 F L 96.7 F L Pulse Rate 77 77 70 Respiratory Rate 18 18 16 Blood Pressure 133/50 L 141/71 H Pulse Oximetry 96 96 94 Oxygen Delivery Room Air 05/27/23 05:58 05/27/23 09:30 Temperature 96.7 F L Pulse Rate 78 Respiratory Rate 18 Blood Pressure 126/76 Pulse Oximetry 93 Oxygen Delivery Room Air Intake/Output Intake/Output: Intake & Output 05/24/23 05/25/23 05/26/23 05/27/23 23:59 23:59 23:59 23:59 Intake Total 2094 2158 1802 418 Balance 2094 2158 1802 418 Meds/Results Medications: Active Medications Generic Name Dose Route Start Last Admin Trade Name Freq PRN Reason Stop Dose Admin Acetaminophen 650 mg 05/14/23 16:00 Acetaminophen 325 Mg Tablet PO Q6H PRN Mild Pain (1-3) or Fever Enoxaparin Sodium 40 mg 05/15/23 09:00 05/27/23 09:59 Enoxaparin 40 Mg/0.4 Ml Syringe SUB-Q 40 mg DAILY NICOLE Administration Furosemide 40 mg 05/26/23 17:00 05/27/23 09:46 Furosemide Inj 40 Mg/4 Ml Vial IV PUSH 40 mg BID NICOLE Administration Linezolid 600 mg in 300 mls @ 300 mls/hr 05/27/23 21:00 Zyvox IVPB Q12HR NICOLE Meropenem 1 gm in 100 mls @ 200 mls/hr 05/27/23 13:00 IVPB Q8H NICOLE Mupirocin 1 applic 05/17/23 09:00 1
[2023-05-27 14:00] VITALS: BP 132/80; PULSE 85; RESP 18; TEMP 36.7; O2SAT 94
[2023-05-27] MEDS: LINEZOLID 600 MG/300 ML 600 MG/300 ML SOLN 300 MG IVPB (14:21)
[2023-05-27] MEDS: MEROPENEM 1 GM/NS 100 ML 1 GM/100 ML BAG IVPB ×2 (14:27→21:02)
[2023-05-27 20:30] VITALS: PULSE 84; RESP 18; O2SAT 96
[2023-05-27 21:54] VITALS: O2SAT 96
[2023-05-27 21:57] VITALS: BP 154/76; PULSE 84; RESP 18; TEMP 35.9; O2SAT 96
[2023-05-28 04:45] VITALS: BP 145/66; PULSE 72; RESP 18; TEMP 35.9; O2SAT 94
[2023-05-28] MEDS: MEROPENEM 1 GM/NS 100 ML 1 GM/100 ML BAG IVPB ×3 (05:02→20:37)
[2023-05-28] MEDS: LINEZOLID 600 MG/300 ML 600 MG/300 ML SOLN 300 MG IVPB ×2 (05:03→17:44)
[2023-05-28 07:51] LABS: Basophils Absolute Auto 0.1 K/mm3 (0.0-0.1); Basophils Percent Auto 0.9 % (0.2-1.2); Eosinophils Absolute Auto 0.1 K/mm3 (0-0.3); Eosinophils Percent Auto 1.6 % (0-4.4); Hemoglobin 12.7 g/dL (14.0-18.0); Immature Granulocyte Absolute 0.03 K/mm3 (0.00-0.031); Immature Granulocyte Percent A 0.5 % (0-0.5); Lymphocytes Absolute Auto 1.42 K/mm3 (0.9-3.2); Lymphocytes Percent Auto 24.7 % (18.3-44.2); Mean Corpuscular Hemoglobin 27.5 pg (26-34); Mean Corpuscular Volume 88.9 fl (80-100); Mean Platelet Volume 9.6 fl (7.4-10.4); Monocytes Absolute Auto 0.7 K/mm3 (0.1-0.6); Monocytes Percent Auto 11.3 % (2.6-8.5); Neutrophils Absolute Auto 3.5 K/mm3 (1.3-6.7); Platelet Count Result 247 k/mm3 (150-375); Red Blood Count 4.61 M/mm3 (4.6-6.20); Red Cell Distribution Width 15.3 % (11.5-14.5); White Blood Count 5.8 K/mm3 (4.5-10.0)
[2023-05-28 08:00] LABS: Alanine Aminotransferase 27 U/L (6-50); Albumin Level 3.3 g/dL (3.5-5.1); Alkaline Phosphatase 59 U/L (38-126); Anion Gap 5 mmol/L (8-16); Aspartate Amino Transferase 41 U/L (17-59); Bilirubin,Total 0.6 mg/dL (0.2-1.3); Blood Urea Nitrogen 14 mg/dL (9-20); Calcium 8.2 mg/dL (8.4-10.2); Carbon Dioxide 32 mmol/L (22-30); Chloride 91 mmol/L (98-107); Estimated CRCL calculation 120 ml/min; Estimated Glomerular Filt Rate > 60; Glucose 143 mg/dL (65-110); Potassium 3.4 mmol/L (3.4-5.0); Sodium 128 mmol/L (137-145)
[2023-05-28] MEDS: ENOXAPARIN 40 MG/0.4 ML SYRINGE SUB-Q (10:03)
[2023-05-28] MEDS: FUROSEMIDE INJ 40 MG/4 ML VIAL IV PUSH ×2 (10:03→17:44)
[2023-05-28] MEDS: MUPIROCIN 2% OINT 22 GM TUBE 1 APPLIC TOPICAL ×2 (10:04→20:40)
--- NOTE | 2023-05-28 13:09 | PM.IMPN ---
Progress Note: A&P Assessment and Plan (1) Left leg cellulitis: Code(s): L03.116 - Cellulitis of left lower limb Status: Acute (2) Cardiomegaly: Code(s): I51.7 - Cardiomegaly Status: Acute (3) Suspected sleep apnea: Code(s): R29.818 - Other symptoms and signs involving the nervous system Status: Acute Plan Cellulitis of lower extremity Improving pain but erythema still the same. Will do MRI left leg to further evaluate for persistent cellulitis despite adequate antibiotic coverage patient is allergic to penicillin. patient received Rocephin and Vancomcycin no improvement of cellulitis, stop Rocephin, started cefepime and Flagyl IV, continue vancomycin IV on 05/20 Blood culture remains negative to date Patient has scattered blisters containing pus on the lower extremity, consult general surgeon for evaluation, general surgery recommend medical management Consult wound care Will advance her antibiotics for to meropenem and linezolid D 1 continue same Incidental cardiomegaly with congestive changes. Venous duplex negative. Echocardiogram notable for diastolic grade I dysfunction. BNP 254. Continue diuresis with Lasix 40 mg iv daily. Will help titrate Lasix to 40 b.i.d. Suspected sleep apnea with morbid obesity apnea link was ordered patient refused testing 05/14/2023. DVT prophylaxis Lovenox Code status full code Subjective Date/time seen: 05/28/23 13:09 Interval history: No new complaints. Feels okay redness in the left leg is about the same. For family this much less than when he came in. He remains afebrile. Wound culture no growth so far Review of Systems Review of Systems: All systems reviewed & are unremarkable except as noted in HPI and below Exam Narrative: General: Nontoxic, morbidly obese male sitting in a chair at the side of the bed in no acute distress. HEENT: Normocephalic, atraumatic. PERRL, EOMI. Sclera anicteric. Oral mucosa moist. Crowded oropharynx. Neck: Supple. Exam limited due to neck circumference. No obvious JVD. Respiratory: Respirations are nonlabored. Lung sounds are a bit diminished due to body habitus but are otherwise clear. Cardiovascular: Regular rate and rhythm with S1-S2. Gastrointestinal: Abdomen is morbidly obese, nontender, and nondistended with positive bowel sounds. Skin: Swelling, tender erythema of right lower extremity, cellulitis it is subsiding Extremities: No cyanosis or clubbing. Legs are large with chronic pitting edema. Radial and pedal pulses intact. Neurological: Alert. Cranial nerves 2-12 are grossly intact. No gross focal deficits to casual conversation. Psychiatric: Appropriate mood and affect. Objective Data Vital Signs Vital Signs: Vital Signs - 24 hr 05/27/23 14:00 05/27/23 21:57 05/27/23 20:30 Temperature 98.1 F 96.6 F L Pulse Rate 85 84 84 Respiratory Rate 18 18 18 Blood Pressure 132/80 154/76 H Pulse Oximetry 94 96 96 Oxygen Delivery Room Air 05/27/23 21:54 05/28/23 04:45 Temperature 96.6 F L Pulse Rate 72 Respiratory Rate 18 Blood Pressure 145/66 H Pulse Oximetry 96 94 Oxygen Delivery Room Air Intake/Output Intake/Output: Intake & Output 05/25/23 05/26/23 05/27/23 05/28/23 23:59 23:59 23:59 23:59 Intake Total 2158 1802 2194 2318 Balance 2158 1802 2194 2318 Meds/Results Medications: Active Medications Generic Name Dose Route Start Last Admin Trade Name Freq PRN Reason Stop Dose Admin Acetaminophen 650 mg 05/14/23 16:00 Acetaminophen 325 Mg Tablet PO Q6H PRN Mild Pain (1-3) or Fever Enoxaparin Sodium 40 mg 05/15/23 09:00 05/28/23 10:03 Enoxaparin 40 Mg/0.4 Ml Syringe SUB-Q 40 mg DAILY NICOLE Administration Furosemide 40 mg 05/26/23 17:00 05/28/23 10:03 Furosemide Inj 40 Mg/4 Ml Vial IV PUSH 40 mg BID NICOLE Administration Meropenem 1 gm in 100 mls @ 200 mls/hr 05/27/23 14:00 05/28/23 05:02 IVPB 200 mls/hr
[2023-05-28 14:00] VITALS: BP 117/74; PULSE 76; RESP 16; TEMP 36.1; O2SAT 96
[2023-05-28 22:00] VITALS: BP 132/64; PULSE 73; RESP 18; TEMP 36.1; O2SAT 94
[2023-05-29 03:33] LABS: Vancomycin Trough < 5.0 ug/mL (10.0-20.0)
[2023-05-29] MEDS: MEROPENEM 1 GM/NS 100 ML 1 GM/100 ML BAG IVPB ×3 (05:15→20:48)
[2023-05-29] MEDS: LINEZOLID 600 MG/300 ML 600 MG/300 ML SOLN 300 MG IVPB ×2 (05:53→17:15)
[2023-05-29 06:30] LABS: Basophils Absolute Auto 0.1 K/mm3 (0.0-0.1); Basophils Percent Auto 0.8 % (0.2-1.2); Eosinophils Absolute Auto 0.1 K/mm3 (0-0.3); Eosinophils Percent Auto 2.1 % (0-4.4); Hematocrit 41.5 % (42.0-52.0); Hemoglobin 12.7 g/dL (14.0-18.0); Immature Granulocyte Absolute 0.02 K/mm3 (0.00-0.031); Immature Granulocyte Percent A 0.3 % (0-0.5); Lymphocytes Percent Auto 30.2 % (18.3-44.2); Mean Corpuscular HGB Conc 30.6 g/dl (32-36); Mean Corpuscular Hemoglobin 27.6 pg (26-34); Mean Corpuscular Volume 90.2 fl (80-100); Mean Platelet Volume 9.7 fl (7.4-10.4); Monocytes Absolute Auto 0.7 K/mm3 (0.1-0.6); Monocytes Percent Auto 11.2 % (2.6-8.5); Neutrophils Absolute Auto 3.7 K/mm3 (1.3-6.7); Neutrophils Percent Auto 55.4 % (45.5-73.1); Platelet Count Result 252 k/mm3 (150-375); Red Cell Distribution Width 15.4 % (11.5-14.5); White Blood Count 6.6 K/mm3 (4.5-10.0)
[2023-05-29 06:44] LABS: Alanine Aminotransferase 24 U/L (6-50); Albumin Level 3.3 g/dL (3.5-5.1); Alkaline Phosphatase 62 U/L (38-126); Anion Gap 4 mmol/L (8-16); Aspartate Amino Transferase 40 U/L (17-59); Bilirubin,Total 0.5 mg/dL (0.2-1.3); Blood Urea Nitrogen 14 mg/dL (9-20); Calcium 8.3 mg/dL (8.4-10.2); Carbon Dioxide 34 mmol/L (22-30); Chloride 91 mmol/L (98-107); Estimated CRCL calculation 120 ml/min; Estimated Glomerular Filt Rate > 60; Glucose 118 mg/dL (65-110); Potassium 3.5 mmol/L (3.4-5.0); Sodium 129 mmol/L (137-145)
[2023-05-29] MEDS: MUPIROCIN 2% OINT 22 GM TUBE 1 APPLIC TOPICAL ×2 (09:29→20:49)
[2023-05-29] MEDS: FUROSEMIDE INJ 40 MG/4 ML VIAL IV PUSH ×2 (09:29→17:13)
[2023-05-29] MEDS: ENOXAPARIN 40 MG/0.4 ML SYRINGE SUB-Q (09:29)
[2023-05-29 11:14] VITALS: BP 134/74; PULSE 80; RESP 16; TEMP 36.9; O2SAT 93
--- NOTE | 2023-05-29 12:24 | PM.IMPN ---
Progress Note: A&P Assessment and Plan (1) Left leg cellulitis: Code(s): L03.116 - Cellulitis of left lower limb Status: Acute (2) Cardiomegaly: Code(s): I51.7 - Cardiomegaly Status: Acute (3) Suspected sleep apnea: Code(s): R29.818 - Other symptoms and signs involving the nervous system Status: Acute Plan Cellulitis of lower extremity Improving pain but erythema still the same. Will do MRI left leg to further evaluate for persistent cellulitis despite adequate antibiotic coverage patient is allergic to penicillin. patient received Rocephin and Vancomcycin no improvement of cellulitis, stop Rocephin, started cefepime and Flagyl IV, continue vancomycin IV on 05/20 Blood culture remains negative to date Patient has scattered blisters containing pus on the lower extremity, consult general surgeon for evaluation, general surgery recommend medical management Consult wound care Will advance her antibiotics for to meropenem and linezolid D 2 continue same Mild hyponatremia continue to monitor Incidental cardiomegaly with congestive changes. Venous duplex negative. Echocardiogram notable for diastolic grade I dysfunction. BNP 254. Continue diuresis with Lasix 40 mg iv daily. Will help titrate Lasix to 40 b.i.d. Suspected sleep apnea with morbid obesity apnea link was ordered patient refused testing 05/14/2023. DVT prophylaxis Lovenox Code status full code Subjective Date/time seen: 05/29/23 12:24 Interval history: Redness remains the same. Overall feels okay. Denies any nausea vomiting. Labs reviewed. Review of Systems Review of Systems: All systems reviewed & are unremarkable except as noted in HPI and below Exam Narrative: General: Nontoxic, morbidly obese male sitting in a chair at the side of the bed in no acute distress. HEENT: Normocephalic, atraumatic. PERRL, EOMI. Sclera anicteric. Oral mucosa moist. Crowded oropharynx. Neck: Supple. Exam limited due to neck circumference. No obvious JVD. Respiratory: Respirations are nonlabored. Lung sounds are a bit diminished due to body habitus but are otherwise clear. Cardiovascular: Regular rate and rhythm with S1-S2. Gastrointestinal: Abdomen is morbidly obese, nontender, and nondistended with positive bowel sounds. Skin: Swelling, tender erythema of right lower extremity, cellulitis it is subsiding Extremities: No cyanosis or clubbing. Legs are large with chronic pitting edema. Radial and pedal pulses intact. Neurological: Alert. Cranial nerves 2-12 are grossly intact. No gross focal deficits to casual conversation. Psychiatric: Appropriate mood and affect. Objective Data Vital Signs Vital Signs: Vital Signs - 24 hr 05/28/23 14:00 05/28/23 20:00 05/28/23 22:00 Temperature 97.0 F L 97 F L Pulse Rate 76 73 Respiratory Rate 16 18 Blood Pressure 117/74 132/64 Pulse Oximetry 96 94 Oxygen Delivery Room Air 05/29/23 09:00 05/29/23 11:14 Temperature 98.4 F Pulse Rate 80 Respiratory Rate 16 Blood Pressure 134/74 Pulse Oximetry 93 Oxygen Delivery Room Air Intake/Output Intake/Output: Intake & Output 05/26/23 05/27/23 05/28/23 05/29/23 23:59 23:59 23:59 23:59 Intake Total 1802 2194 4512 1620 Balance 1802 2194 4512 1620 Meds/Results Medications: Active Medications Generic Name Dose Route Start Last Admin Trade Name Freq PRN Reason Stop Dose Admin Acetaminophen 650 mg 05/14/23 16:00 Acetaminophen 325 Mg Tablet PO Q6H PRN Mild Pain (1-3) or Fever Enoxaparin Sodium 40 mg 05/15/23 09:00 05/29/23 09:29 Enoxaparin 40 Mg/0.4 Ml Syringe SUB-Q 40 mg DAILY NICOLE Administration Furosemide 40 mg 05/26/23 17:00 05/29/23 09:29 Furosemide Inj 40 Mg/4 Ml Vial IV PUSH 40 mg BID NICOLE Administration Meropenem 1 gm in 100 mls @ 200 mls/hr 05/27/23 14:00 05/29/23 05:45 IVPB Infused Q8H NICOLE Infusion Linezolid 600 mg in 300 mls @ 300 mls/
[2023-05-29 17:33] VITALS: BP 140/70; PULSE 77; RESP 16; TEMP 36.5; O2SAT 90
[2023-05-29 22:00] VITALS: BP 120/66; PULSE 81; RESP 16; TEMP 35.9; O2SAT 96
[2023-05-30] MEDS: MEROPENEM 1 GM/NS 100 ML 1 GM/100 ML BAG IVPB ×3 (05:26→20:38)
[2023-05-30] MEDS: LINEZOLID 600 MG/300 ML 600 MG/300 ML SOLN 300 MG IVPB ×2 (05:27→17:34)
[2023-05-30 06:00] VITALS: BP 158/87; PULSE 72; RESP 20; TEMP 36.1; O2SAT 94
[2023-05-30 06:40] LABS: Estimated CRCL calculation 120 ml/min; Estimated Glomerular Filt Rate > 60
--- NOTE | 2023-05-30 09:32 | PCNWS ---
Weekly nutritional screen. Patient is tolerating current heart healthy diet with adequate intake 75-100%. No weight loss reported. No nutritional needs at this time.
[2023-05-30] MEDS: ENOXAPARIN 40 MG/0.4 ML SYRINGE SUB-Q (09:48)
[2023-05-30] MEDS: FUROSEMIDE INJ 40 MG/4 ML VIAL IV PUSH ×2 (09:48→17:34)
[2023-05-30] MEDS: MUPIROCIN 2% OINT 22 GM TUBE 1 APPLIC TOPICAL ×2 (09:49→20:38)
--- NOTE | 2023-05-30 10:52 | PM.IMPN ---
Progress Note: A&P Assessment and Plan (1) Left leg cellulitis: Code(s): L03.116 - Cellulitis of left lower limb Status: Acute (2) Cardiomegaly: Code(s): I51.7 - Cardiomegaly Status: Acute (3) Suspected sleep apnea: Code(s): R29.818 - Other symptoms and signs involving the nervous system Status: Acute Plan Cellulitis of lower extremity Improving pain but erythema still the same. Will do MRI left leg to further evaluate for persistent cellulitis despite adequate antibiotic coverage patient is allergic to penicillin. patient received Rocephin and Vancomcycin no improvement of cellulitis, stop Rocephin, started cefepime and Flagyl IV, continue vancomycin IV on 05/20 Blood culture remains negative to date Patient has scattered blisters containing pus on the lower extremity, consult general surgeon for evaluation, general surgery recommend medical management Consult wound care Will advance her antibiotics for to meropenem and linezolid D 3 continue same. Improving Mild hyponatremia continue to monitor Incidental cardiomegaly with congestive changes. Venous duplex negative. Echocardiogram notable for diastolic grade I dysfunction. BNP 254. Continue diuresis with Lasix 40 mg iv daily. Will help titrate Lasix to 40 b.i.d. Suspected sleep apnea with morbid obesity apnea link was ordered patient refused testing 05/14/2023. DVT prophylaxis Lovenox Code status full code Subjective Date/time seen: 05/30/23 10:52 Interval history: He has no new complaints. Blood sugar reviewed. lower leg erythema is improved. Discussed with the wound care team Review of Systems Review of Systems: All systems reviewed & are unremarkable except as noted in HPI and below Exam Narrative: General: Nontoxic, morbidly obese male sitting in a chair at the side of the bed in no acute distress. HEENT: Normocephalic, atraumatic. PERRL, EOMI. Sclera anicteric. Oral mucosa moist. Crowded oropharynx. Neck: Supple. Exam limited due to neck circumference. No obvious JVD. Respiratory: Respirations are nonlabored. Lung sounds are a bit diminished due to body habitus but are otherwise clear. Cardiovascular: Regular rate and rhythm with S1-S2. Gastrointestinal: Abdomen is morbidly obese, nontender, and nondistended with positive bowel sounds. Skin: Swelling, tender erythema of right lower extremity, cellulitis it is subsiding Extremities: No cyanosis or clubbing. Legs are large with chronic pitting edema. Radial and pedal pulses intact. Neurological: Alert. Cranial nerves 2-12 are grossly intact. No gross focal deficits to casual conversation. Psychiatric: Appropriate mood and affect. Objective Data Vital Signs Vital Signs: Vital Signs - 24 hr 05/29/23 11:14 05/29/23 17:33 05/29/23 22:00 Temperature 98.4 F 97.7 F 96.7 F L Pulse Rate 80 77 81 Respiratory Rate 16 16 16 Blood Pressure 134/74 140/70 120/66 Pulse Oximetry 93 90 96 05/30/23 06:00 Temperature 97.0 F L Pulse Rate 72 Respiratory Rate 20 Blood Pressure 158/87 H Pulse Oximetry 94 Intake/Output Intake/Output: Intake & Output 05/27/23 05/28/23 05/29/23 05/30/23 23:59 23:59 23:59 23:59 Intake Total 2194 4512 2961 1236 Balance 2194 4512 2961 1236 Meds/Results Medications: Active Medications Generic Name Dose Route Start Last Admin Trade Name Freq PRN Reason Stop Dose Admin Acetaminophen 650 mg 05/14/23 16:00 Acetaminophen 325 Mg Tablet PO Q6H PRN Mild Pain (1-3) or Fever Enoxaparin Sodium 40 mg 05/15/23 09:00 05/30/23 09:48 Enoxaparin 40 Mg/0.4 Ml Syringe SUB-Q 40 mg DAILY NICOLE Administration Furosemide 40 mg 05/26/23 17:00 05/30/23 09:48 Furosemide Inj 40 Mg/4 Ml Vial IV PUSH 40 mg BID NICOLE Administration Meropenem 1 gm in 100 mls @ 200 mls/hr 05/27/23 14:00 05/30/23 05:56 IVPB Infused Q8H NICOLE Infusion Linezolid 600 mg in 300 mls @ 300 mls/hr 05/28/23 0
[2023-05-30 11:44] LABS: Hepatitis B Surface Antigen Negative (Negative)
[2023-05-30 11:49] LABS: HAV RESULT Negative (Negative); Hepatitis B Core IgM Result Negative (Negative)
[2023-05-30 12:01] LABS: Hepatitis C Virus Antibody Negative (Negative)
[2023-05-30 14:00] VITALS: BP 135/65; PULSE 86; RESP 22; TEMP 36.8; O2SAT 95
[2023-05-30 22:00] VITALS: BP 125/68; PULSE 75; RESP 20; TEMP 36.1; O2SAT 95
[2023-05-31] MEDS: MEROPENEM 1 GM/NS 100 ML 1 GM/100 ML BAG IVPB ×3 (05:12→21:36)
[2023-05-31] MEDS: LINEZOLID 600 MG/300 ML 600 MG/300 ML SOLN 300 MG IVPB ×2 (05:46→18:08)
[2023-05-31 06:00] VITALS: BP 101/53; PULSE 72; RESP 16; TEMP 36; O2SAT 95
[2023-05-31 06:54] LABS: Basophils Absolute Auto 0.1 K/mm3 (0.0-0.1); Basophils Percent Auto 1.1 % (0.2-1.2); Eosinophils Absolute Auto 0.1 K/mm3 (0-0.3); Hematocrit 40.2 % (42.0-52.0); Hemoglobin 12.4 g/dL (14.0-18.0); Immature Granulocyte Absolute 0.01 K/mm3 (0.00-0.031); Immature Granulocyte Percent A 0.2 % (0-0.5); Lymphocytes Absolute Auto 1.35 K/mm3 (0.9-3.2); Lymphocytes Percent Auto 24.2 % (18.3-44.2); Mean Corpuscular HGB Conc 30.8 g/dl (32-36); Mean Corpuscular Hemoglobin 27.7 pg (26-34); Mean Corpuscular Volume 89.9 fl (80-100); Mean Platelet Volume 9.7 fl (7.4-10.4); Monocytes Absolute Auto 0.5 K/mm3 (0.1-0.6); Monocytes Percent Auto 8.8 % (2.6-8.5); Neutrophils Absolute Auto 3.6 K/mm3 (1.3-6.7); Neutrophils Percent Auto 63.7 % (45.5-73.1); Platelet Count Result 218 k/mm3 (150-375); Red Blood Count 4.47 M/mm3 (4.6-6.20); Red Cell Distribution Width 15.4 % (11.5-14.5); White Blood Count 5.6 K/mm3 (4.5-10.0)
[2023-05-31 07:03] LABS: Alanine Aminotransferase 23 U/L (6-50); Albumin Level 3.2 g/dL (3.5-5.1); Alkaline Phosphatase 56 U/L (38-126); Anion Gap 2 mmol/L (8-16); Aspartate Amino Transferase 35 U/L (17-59); Bilirubin,Total 0.6 mg/dL (0.2-1.3); Blood Urea Nitrogen 16 mg/dL (9-20); Calcium 8.3 mg/dL (8.4-10.2); Carbon Dioxide 37 mmol/L (22-30); Chloride 90 mmol/L (98-107); Estimated CRCL calculation 120 ml/min; Estimated Glomerular Filt Rate > 60; Glucose 152 mg/dL (65-110); Magnesium 1.9 mg/dL (1.6-2.3); Potassium 3.3 mmol/L (3.4-5.0); Sodium 129 mmol/L (137-145)
[2023-05-31] MEDS: ENOXAPARIN 40 MG/0.4 ML SYRINGE SUB-Q (08:28)
[2023-05-31] MEDS: FUROSEMIDE INJ 40 MG/4 ML VIAL IV PUSH (08:28)
[2023-05-31] MEDS: MUPIROCIN 2% OINT 22 GM TUBE 1 APPLIC TOPICAL ×2 (08:30→20:38)
[2023-05-31] MEDS: FUROSEMIDE 40 MG TABLET PO ×2 (09:49→16:21)
[2023-05-31] MEDS: POTASSIUM CHLORIDE 20 MEQ ER TABLET 40 MEQ PO (09:49)
[2023-05-31 14:00] VITALS: BP 131/68; PULSE 73; RESP 16; TEMP 36.4; O2SAT 98
--- NOTE | 2023-05-31 15:02 | PM.IMPN ---
Progress Note: A&P Assessment and Plan (1) Left leg cellulitis: Code(s): L03.116 - Cellulitis of left lower limb Status: Acute (2) Cardiomegaly: Code(s): I51.7 - Cardiomegaly Status: Acute (3) Suspected sleep apnea: Code(s): R29.818 - Other symptoms and signs involving the nervous system Status: Acute Plan Cellulitis of lower extremity Improving pain but erythema still the same. Will do MRI left leg to further evaluate for persistent cellulitis despite adequate antibiotic coverage patient is allergic to penicillin. patient received Rocephin and Vancomcycin no improvement of cellulitis, stop Rocephin, started cefepime and Flagyl IV, continue vancomycin IV on 05/20 Blood culture remains negative to date Patient has scattered blisters containing pus on the lower extremity, consult general surgeon for evaluation, general surgery recommend medical management Consult wound care Will advance her antibiotics for to meropenem and linezolid D 4 continue same. Improving continue IV. Linezolid oral and finish 5-7 days IV meropenem here if persistent may switch to IV ertapenem a along with oral levofloxacin for pseudomonal coverage Mild hyponatremia continue to monitor Incidental cardiomegaly with congestive changes. Venous duplex negative. Echocardiogram notable for diastolic grade I dysfunction. BNP 254. Continue diuresis with Lasix 40 mg iv daily. Will help titrate Lasix to 40 b.i.d. Suspected sleep apnea with morbid obesity apnea link was ordered patient refused testing 05/14/2023. DVT prophylaxis Lovenox Code status full code Subjective Date/time seen: 05/31/23 15:02 Interval history: erythema on the leg improving. No fever chills. Overall feels okay Review of Systems Review of Systems: All systems reviewed & are unremarkable except as noted in HPI and below Exam Narrative: General: Nontoxic, morbidly obese male sitting in a chair at the side of the bed in no acute distress. HEENT: Normocephalic, atraumatic. PERRL, EOMI. Sclera anicteric. Oral mucosa moist. Crowded oropharynx. Neck: Supple. Exam limited due to neck circumference. No obvious JVD. Respiratory: Respirations are nonlabored. Lung sounds are a bit diminished due to body habitus but are otherwise clear. Cardiovascular: Regular rate and rhythm with S1-S2. Gastrointestinal: Abdomen is morbidly obese, nontender, and nondistended with positive bowel sounds. Skin: Swelling, tender erythema of right lower extremity, cellulitis it is subsiding Extremities: No cyanosis or clubbing. Legs are large with chronic pitting edema. Radial and pedal pulses intact. Neurological: Alert. Cranial nerves 2-12 are grossly intact. No gross focal deficits to casual conversation. Psychiatric: Appropriate mood and affect. Objective Data Vital Signs Vital Signs: Vital Signs - 24 hr 05/30/23 20:00 05/30/23 22:00 05/31/23 06:00 Temperature 97 F L 96.8 F L Pulse Rate 75 72 Respiratory Rate 20 16 Blood Pressure 125/68 101/53 L Pulse Oximetry 95 95 Oxygen Delivery Room Air 05/31/23 08:00 05/31/23 14:00 Temperature 97.6 F Pulse Rate 73 Respiratory Rate 16 Blood Pressure 131/68 Pulse Oximetry 98 Oxygen Delivery Room Air Intake/Output Intake/Output: Intake & Output 05/28/23 05/29/23 05/30/23 05/31/23 23:59 23:59 23:59 23:59 Intake Total 4512 2961 4490 5220 Balance 4512 2961 4490 5220 Meds/Results Medications: Active Medications Generic Name Dose Route Start Last Admin Trade Name Hemaq PRN Reason Stop Dose Admin Acetaminophen 650 mg 05/14/23 16:00 Acetaminophen 325 Mg Tablet PO Q6H PRN Mild Pain (1-3) or Fever Enoxaparin Sodium 40 mg 05/15/23 09:00 05/31/23 08:28 Enoxaparin 40 Mg/0.4 Ml Syringe SUB-Q 40 mg DAILY NICOLE Administration Furosemide 40 mg 05/31/23 09:00 05/31/23 09:49 Furosemide 40 Mg Tablet PO 40 mg BID NICOLE Administration Merop
[2023-05-31 20:00] VITALS: PULSE 73; RESP 16; O2SAT 98
[2023-05-31 22:00] VITALS: BP 143/61; PULSE 72; RESP 18; TEMP 36.3; O2SAT 94
[2023-06-01] MEDS: MEROPENEM 1 GM/NS 100 ML 1 GM/100 ML BAG IVPB ×3 (05:30→21:17)
[2023-06-01] MEDS: LINEZOLID 600 MG/300 ML 600 MG/300 ML SOLN 300 MG IVPB ×2 (05:59→17:31)
[2023-06-01 06:00] VITALS: BP 124/68; PULSE 70; RESP 18; TEMP 35.8; O2SAT 93
[2023-06-01] MEDS: ENOXAPARIN 40 MG/0.4 ML SYRINGE SUB-Q (08:08)
[2023-06-01] MEDS: FUROSEMIDE 40 MG TABLET PO ×2 (08:12→17:31)
[2023-06-01] MEDS: MUPIROCIN 2% OINT 22 GM TUBE 1 APPLIC TOPICAL ×2 (10:58→20:44)
--- NOTE | 2023-06-01 12:28 | PC.NURSE ---
On 06/01/23, the student, [Abraham Bhatti ], provided care and completed [facility] documentation on this patient. I have reviewed the student's documentation and agree with the findings.
[2023-06-01 14:00] VITALS: BP 117/80; PULSE 77; RESP 16; TEMP 36; O2SAT 95
--- NOTE | 2023-06-01 18:41 | PM.IMPN ---
Progress Note: A&P Assessment and Plan (1) Left leg cellulitis: Code(s): L03.116 - Cellulitis of left lower limb Status: Acute Plan continue current abx, need to see more improvement. monitor white count and procalcitonin. difficult to treat given his body habitus. Subjective Date/time seen: 06/01/23 18:41 Interval history: NAOe. pt reports improved depth or redness, color, and warmth Review of Systems Cardiovascular: Cardiovascular: Denies chest pain and Denies dyspnea Respiratory: Respiratory: Denies cough and Denies dyspnea Gastrointestinal: Gastrointestinal: Denies abdominal pain and Denies vomiting Exam Const: General: no acute distress, alert and Physically active Resp: Effort & Inspection: normal respiratory effort Auscultation: clear to auscultation bilaterally Cardio: Rate: regular rate Rhythm: regular rhythm Heart sounds: S1 normal heart sound present and S2 normal heart sound present GI: Inspection: non-distended GI Palp: No abdominal tenderness Auscultation: normal bowel sounds Extrem: Other: chronic stasis changes with venous ulcer of LLE and surrounding erythema, cool to touch. Objective Data Vital Signs Vital Signs: Vital Signs - 24 hr 05/31/23 20:00 05/31/23 22:00 06/01/23 06:00 Temperature 97.3 F L 96.5 F L Pulse Rate 73 72 70 Respiratory Rate 16 18 18 Blood Pressure 143/61 H 124/68 Pulse Oximetry 98 94 93 Oxygen Delivery Room Air 06/01/23 08:12 06/01/23 14:00 Temperature 96.8 F L Pulse Rate 77 Respiratory Rate 16 Blood Pressure 117/80 Pulse Oximetry 95 Oxygen Delivery Room Air Intake/Output Intake/Output: Intake & Output 05/29/23 05/30/23 05/31/23 06/01/23 23:59 23:59 23:59 23:59 Intake Total 2961 3059 6501 1699 Balance 2961 6716 7859 1578 Meds/Results Medications: Active Medications Generic Name Dose Route Start Last Admin Trade Name Freq PRN Reason Stop Dose Admin Acetaminophen 650 mg 05/14/23 16:00 Acetaminophen 325 Mg Tablet PO Q6H PRN Mild Pain (1-3) or Fever Enoxaparin Sodium 40 mg 05/15/23 09:00 06/01/23 08:08 Enoxaparin 40 Mg/0.4 Ml Syringe SUB-Q 40 mg DAILY NICOLE Administration Furosemide 40 mg 05/31/23 09:00 06/01/23 17:31 Furosemide 40 Mg Tablet PO 40 mg BID NICOLE Administration Meropenem 1 gm in 100 mls @ 200 mls/hr 05/27/23 14:00 06/01/23 16:18 IVPB Infused Q8H NICOLE Infusion Linezolid 600 mg in 300 mls @ 300 mls/hr 05/28/23 06:00 06/01/23 17:31 Zyvox IVPB 300 mls/hr Q12H NICOLE Administration Mupirocin 1 applic 05/17/23 09:00 06/01/23 10:58 Mupirocin 2% Oint 22 Gm Tube TOPICAL 1 applic Q12HR NICOLE Administration Radiology Results: ITS Impressions Chest X-Ray 05/14/23 12:04 IMPRESSION: Cardiomegaly, mild congestive changes Left lower lobe infiltrate or atelectasis Venous Doppler Study 05/15/23 15:28 IMPRESSION: Right peroneal veins not visualized. Otherwise patent bilateral lower extremity veins without evidence of deep venous thrombosis. Lower Extremity MRI 05/27/23 08:57 IMPRESSION: No evidence for osteomyelitis or abscess. Diffuse subcutaneous soft tissue edema, consistent with history of cellulitis. Partially imaged large Rivas's cyst at the left knee region.
[2023-06-01 20:00] VITALS: PULSE 77; RESP 16; O2SAT 95
[2023-06-01 22:00] VITALS: BP 129/65; PULSE 69; RESP 20; TEMP 35.9; O2SAT 96
[2023-06-02] MEDS: MEROPENEM 1 GM/NS 100 ML 1 GM/100 ML BAG IVPB (05:03)
[2023-06-02] MEDS: LINEZOLID 600 MG/300 ML 600 MG/300 ML SOLN 300 MG IVPB (05:42)
[2023-06-02 06:00] VITALS: BP 133/56; PULSE 65; RESP 18; TEMP 36.1; O2SAT 94
[2023-06-02 06:23] LABS: Basophils Absolute Auto 0.1 K/mm3 (0.0-0.1); Basophils Percent Auto 0.9 % (0.2-1.2); Eosinophils Absolute Auto 0.2 K/mm3 (0-0.3); Eosinophils Percent Auto 3.7 % (0-4.4); Hematocrit 41.1 % (42.0-52.0); Hemoglobin 12.7 g/dL (14.0-18.0); Immature Granulocyte Absolute 0.01 K/mm3 (0.00-0.031); Immature Granulocyte Percent A 0.2 % (0-0.5); Lymphocytes Absolute Auto 1.78 K/mm3 (0.9-3.2); Lymphocytes Percent Auto 31.6 % (18.3-44.2); Mean Corpuscular HGB Conc 30.9 g/dl (32-36); Mean Corpuscular Hemoglobin 27.7 pg (26-34); Mean Corpuscular Volume 89.5 fl (80-100); Mean Platelet Volume 9.3 fl (7.4-10.4); Monocytes Absolute Auto 0.4 K/mm3 (0.1-0.6); Monocytes Percent Auto 7.8 % (2.6-8.5); Neutrophils Absolute Auto 3.2 K/mm3 (1.3-6.7); Neutrophils Percent Auto 55.8 % (45.5-73.1); Platelet Count Result 208 k/mm3 (150-375); Red Blood Count 4.59 M/mm3 (4.6-6.20); Red Cell Distribution Width 15.3 % (11.5-14.5); White Blood Count 5.6 K/mm3 (4.5-10.0)
[2023-06-02 06:40] LABS: Anion Gap 0 mmol/L (8-16); Blood Urea Nitrogen 15 mg/dL (9-20); Calcium 8.4 mg/dL (8.4-10.2); Carbon Dioxide 36 mmol/L (22-30); Chloride 95 mmol/L (98-107); Estimated CRCL calculation 120 ml/min; Estimated Glomerular Filt Rate > 60; Glucose 125 mg/dL (65-110); Potassium 3.8 mmol/L (3.4-5.0); Sodium 131 mmol/L (137-145)
[2023-06-02 07:02] LABS: Procalcitonin 0.1 ng/mL
[2023-06-02] MEDS: FUROSEMIDE 40 MG TABLET PO ×2 (08:19→16:55)
[2023-06-02] MEDS: MUPIROCIN 2% OINT 22 GM TUBE 1 APPLIC TOPICAL (08:23)
[2023-06-02] MEDS: ENOXAPARIN 40 MG/0.4 ML SYRINGE SUB-Q (08:35)
[2023-06-02] MEDS: LIDOCAINE HCL 1% PF INJ 5 ML VIAL INFILTRATE (12:00)
[2023-06-02] MEDS: ERTAPENEM 1 GM/NS 50 ML 1 GM/50 ML BAG IVPB (12:24)
[2023-06-02] MEDS: SALINE LOCK FLUSH 10 ML IV PUSH (13:55)
[2023-06-02 14:00] VITALS: BP 124/61; PULSE 72; RESP 20; TEMP 36.3; O2SAT 95
--- NOTE | 2023-06-02 16:15 | PM.IMPN ---
Progress Note: A&P Assessment and Plan (1) Left leg cellulitis: Code(s): L03.116 - Cellulitis of left lower limb Status: Acute Plan switch to ertapenem and zyvox as we prepare for discharge. he certainly continues to have a need to be here as his cellulitis is unrelenting. if still improving tomorrow can discharged. midline placed today. will order ertapenem and zyvox for 2 weeks with follow up to outpatient ID to help manage as we dont have ID here. full code. Subjective Date/time seen: 06/02/23 16:15 Interval history: NAOE. pt is without complaints Review of Systems Review of Systems: All systems reviewed & are unremarkable except as noted in HPI and below Exam Const: General: comfortable and no acute distress Neck: Neck: supple Resp: Effort & Inspection: normal respiratory effort Auscultation: clear to auscultation bilaterally Cardio: Rate: regular rate Rhythm: regular rhythm Extrem: Other: LLE slightly improved erythema Objective Data Vital Signs Vital Signs: Vital Signs - 24 hr 06/01/23 20:00 06/01/23 22:00 06/02/23 06:00 Temperature 96.7 F L 96.9 F L Pulse Rate 77 69 65 Respiratory Rate 16 20 18 Blood Pressure 129/65 133/56 L Pulse Oximetry 95 96 94 Oxygen Delivery Room Air 06/02/23 08:20 Temperature Pulse Rate Respiratory Rate Blood Pressure Pulse Oximetry Oxygen Delivery Room Air Intake/Output Intake/Output: Intake & Output 05/30/23 05/31/23 06/01/23 06/02/23 23:59 23:59 23:59 23:59 Intake Total 4490 7338 2098 1000 Balance 4490 7338 2098 1000 Meds/Results Medications: Active Medications Generic Name Dose Route Start Last Admin Trade Name Freq PRN Reason Stop Dose Admin Acetaminophen 650 mg 05/14/23 16:00 Acetaminophen 325 Mg Tablet PO Q6H PRN Mild Pain (1-3) or Fever Enoxaparin Sodium 40 mg 05/15/23 09:00 06/02/23 08:35 Enoxaparin 40 Mg/0.4 Ml Syringe SUB-Q 40 mg DAILY NICOLE Administration Furosemide 40 mg 05/31/23 09:00 06/02/23 08:19 Furosemide 40 Mg Tablet PO 40 mg BID NICOLE Administration Ertapenem 1 gm in 50 mls @ 100 mls/hr 06/02/23 12:00 06/02/23 12:54 Invanz 1 Gm/Ns 50 Ml IVPB Infused DAILY NICOLE Infusion Linezolid 600 mg 06/02/23 18:00 Linezolid 600 Mg Tablet PO Q12HR NICOLE Mupirocin 1 applic 05/17/23 09:00 06/02/23 08:23 Mupirocin 2% Oint 22 Gm Tube TOPICAL 1 applic Q12HR NICOLE Administration Sodium Chloride 10 ml 06/02/23 14:00 Saline Lock Flush IV PUSH Q8HR NICOLE Sodium Chloride 10 ml 06/02/23 12:26 Saline Lock Flush IV PUSH PRN PRN Flush Sodium Chloride 20 ml 06/02/23 12:26 Saline Lock Flush IV PUSH PRN PRN after blood draws Radiology Results: ITS Impressions Chest X-Ray 05/14/23 12:04 IMPRESSION: Cardiomegaly, mild congestive changes Left lower lobe infiltrate or atelectasis Venous Doppler Study 05/15/23 15:28 IMPRESSION: Right peroneal veins not visualized. Otherwise patent bilateral lower extremity veins without evidence of deep venous thrombosis. Lower Extremity MRI 05/27/23 08:57 IMPRESSION: No evidence for osteomyelitis or abscess. Diffuse subcutaneous soft tissue edema, consistent with history of cellulitis. Partially imaged large Rivas's cyst at the left knee region. Labs Labs: Laboratory Results - last 24 hr 06/02/23 06:16 WBC 5.6 RBC 4.59 L Hgb 12.7 L Hct 41.1 L MCV 89.5 MCH 27.7 MCHC 30.9 L RDW 15.3 H Plt Count 208 MPV 9.3 Immature Gran % (Auto) 0.2 Neut % (Auto) 55.8 Lymph % (Auto) 31.6 [place] % (Auto) 7.8 Eos % (Auto) 3.7 Baso % (Auto) 0.9 Lymph # (Auto) 1.78 [place] # (Auto) 0.4 Eos # (Auto) 0.2 Baso # (Auto) 0.1 Abs Immat Gran (auto) 0.01 Absolute Neuts (auto) 3.2 Absolute Nucleated RBC 0.0 Nucleated RBC % 0.0 Sodium 131 L Potassium 3.8 Chloride 95 L Carbon Dioxide 36 H Anion Gap 0 L BUN
[2023-06-02] MEDS: LINEZOLID 600 MG TABLET PO (17:33)
[2023-06-02 20:00] VITALS: PULSE 72; RESP 20; O2SAT 95
[2023-06-02 22:00] VITALS: BP 136/55; PULSE 69; RESP 18; TEMP 36.4; O2SAT 94
[2023-06-03] MEDS: MUPIROCIN 2% OINT 22 GM TUBE 1 APPLIC TOPICAL ×2 (00:14→08:41)
[2023-06-03] MEDS: SALINE LOCK FLUSH 10 ML IV PUSH ×3 (00:14→14:43)
[2023-06-03] MEDS: ALTEPLASE 2 MG VIAL (CATHFLO) IV PUSH (05:45)
[2023-06-03 06:00] VITALS: BP 141/76; PULSE 80; RESP 12; TEMP 36; O2SAT 94
[2023-06-03 07:20] LABS: Basophils Absolute Auto 0.1 K/mm3 (0.0-0.1); Eosinophils Absolute Auto 0.4 K/mm3 (0-0.3); Eosinophils Percent Auto 6.3 % (0-4.4); Hematocrit 40.7 % (42.0-52.0); Hemoglobin 12.7 g/dL (14.0-18.0); Immature Granulocyte Absolute 0.02 K/mm3 (0.00-0.031); Immature Granulocyte Percent A 0.3 % (0-0.5); Lymphocytes Absolute Auto 1.88 K/mm3 (0.9-3.2); Lymphocytes Percent Auto 30.2 % (18.3-44.2); Mean Corpuscular HGB Conc 31.2 g/dl (32-36); Mean Corpuscular Volume 89.8 fl (80-100); Mean Platelet Volume 9.5 fl (7.4-10.4); Monocytes Absolute Auto 0.6 K/mm3 (0.1-0.6); Monocytes Percent Auto 9.2 % (2.6-8.5); Neutrophils Absolute Auto 3.3 K/mm3 (1.3-6.7); Platelet Count Result 213 k/mm3 (150-375); Red Blood Count 4.53 M/mm3 (4.6-6.20); Red Cell Distribution Width 15.3 % (11.5-14.5); White Blood Count 6.2 K/mm3 (4.5-10.0)
[2023-06-03 08:08] LABS: Anion Gap 3 mmol/L (8-16); Blood Urea Nitrogen 16 mg/dL (9-20); Calcium 8.6 mg/dL (8.4-10.2); Carbon Dioxide 33 mmol/L (22-30); Chloride 96 mmol/L (98-107); Estimated CRCL calculation 134 ml/min; Estimated Glomerular Filt Rate > 60; Glucose 111 mg/dL (65-110); Sodium 132 mmol/L (137-145)
[2023-06-03] MEDS: FUROSEMIDE 40 MG TABLET PO (08:25)
[2023-06-03] MEDS: LINEZOLID 600 MG TABLET PO (08:25)
[2023-06-03] MEDS: ERTAPENEM 1 GM/NS 50 ML 1 GM/50 ML BAG IVPB (08:26)
[2023-06-03] MEDS: ENOXAPARIN 40 MG/0.4 ML SYRINGE SUB-Q (08:40)
--- NOTE | 2023-06-03 12:01 | PM.DS ---
DS: Admitting Diagnosis Discharge Date 06/03/23 Admitting Diagnosis cellulitis DS: Discharge Diagnosis Discharge Diagnosis (1) Left leg cellulitis: Code(s): L03.116 - Cellulitis of left lower limb Status: Acute DS: Summary Hospital Course Hospital Course: A 67M w/ morbid obesity and chronic venous stasis presented with LLE cellulitis. It required approximately 20 day of abx before it started to improve. his meropenem and linezolid combo are what helped, so they are switched to ertapenem for one day dosing and PO zyvox for 2 more weeks. He will be discharged in improved condition to home with home health for IV infusions. He has a scheduled f/u with his PCP in 5 days. I suggested an ID marketing consultant get involved as well. At this time his labs are normalized, he is nontoxic appearing. The patient knows if he has worsening of symptoms again he can return to the ER, and it would also be prudent to go to a facility with ID specialists available. The pt is agreeable to this plan. counseled on the benefits of weight loss. venous doppler neg for DVT LLE MRI neg for osteomyelitis or abscess More than 30 minutes spent on discharge planning and documentation. Time Spent with Patient Time attestation: Total time spent providing and/or coordinating discharge services: Exam Const: General: comfortable and no acute distress Other: morbidly obese Neck: Neck: supple Resp: Effort & Inspection: normal respiratory effort Auscultation: clear to auscultation bilaterally Cardio: Rate: regular rate Rhythm: regular rhythm GI: GI Palp: Yes Soft to palpation Auscultation: normal bowel sounds Extrem: General: edema (chronic venous stasis changes of LEs. LLE erythema improved) DS: Data Data Completed and Pending Labs on day of discharge: Labs from last 24 hours 06/03/23 06:33 WBC 6.2 RBC 4.53 L Hgb 12.7 L Hct 40.7 L MCV 89.8 MCH 28.0 MCHC 31.2 L RDW 15.3 H Plt Count 213 MPV 9.5 Immature Gran % (Auto) 0.3 Neut % (Auto) 53.0 Lymph % (Auto) 30.2 [place] % (Auto) 9.2 H Eos % (Auto) 6.3 H Baso % (Auto) 1.0 Lymph # (Auto) 1.88 [place] # (Auto) 0.6 Eos # (Auto) 0.4 H Baso # (Auto) 0.1 Abs Immat Gran (auto) 0.02 Absolute Neuts (auto) 3.3 Absolute Nucleated RBC 0.0 Nucleated RBC % 0.0 Sodium 132 L Potassium 4.0 Chloride 96 L Carbon Dioxide 33 H Anion Gap 3 L BUN 16 Creatinine 0.80 Estim Creat Clear Calc 134 Estimated GFR > 60 Glucose 111 H Calcium 8.6 Discharge Plan Discharge Attending physician on discharge: Radha Toribio Consulting providers: Hallie Trejo; Divya Arnold Discharging Clinician: Radha Toribio Patient Disposition: Home Health Service Activity: december shower Diet: heart healthy Discharge Instructions: Appointment at Dr. Quintanilla's office with Cat Jun 09 at 130 pm. Per Care Coordination Patient to have [facility] for IV antibiotic management, RN services. Their phone number is [phone] if you have any questions. [facility] in [place] will supply IV antibiotic supplies. Their phone number is [phone] if you have any questions. RN Please fax discharge instructions to [phone]. to continue ertapenem for 2 weeks via daily IV infusion at home, and zyvox by mouth for 2 weeks. adjust as recommended by PCP or infectious disease marketing consultant Patient Instructions: Antibiotic Form, Cellulitis (GEN) Stand Alone Forms: General Discharge Information Follow-up/Referrals: Cooper Quintanilla MD [Primary Care Provider] - 1 Week (f/u on cellulitis, and for infectious disease referral) Discharge Medications: New linezolid 600 mg Tablet 600 mg PO Q12HR 14 Days Qty: 28 0RF Other Ambulatory Orders: Basic Metabolic Panel (Routine) Timeframe: 1 Week Location: Determined by Patient Ordered By: Radha Toribio Complete Blood Count with Diff (Routine) Timeframe: 1 Week Location: Determined by Pat
== END 2023-06-03 15:00 | disposition home health service (06) | DRG 603 ==
LOC: ANHED 12:42 → ANH3MEDSUR 13:24
PROVIDERS: Emergency Medicine; Family Medicine; Hospitalist; Internal Medicine; Physician Assistant; Admitting Provider Internal Medicine; Emergency Provider Physician Assistant; PCP Family Medicine; Visit Provider General Practice
DX: L03.116 Cellulitis of left lower limb (principal); Z68.44 Body mass index [BMI] 60.0-69.9, adult; E87.1 Hypo-osmolality and hyponatremia; E66.01 Morbid (severe) obesity due to excess calories; I51.7 Cardiomegaly; G47.39 Other sleep apnea; I87.8 Other specified disorders of veins; Z23 Encounter for immunization; Z85.038 Personal history of other malignant neoplasm of large intestine
CPT/HCPCS: 36415; 36569; 71045; 73718; 80048; 80053; 80074; 80202; 81001; 82565; 83036; 83605; 83735; 83880; 84145; 84443; 85025; 85027; 86140; 87040; 87070; 87081; 87205; 90471; 90694; 90715; 93970; 96365; 99212; 99285; A9270; C8929; G0008; G0378; G0463; J0690; J0692; J0696; J1335; J1650; J1836; J1940; J2020; J2185; J2997; J3370; Q9957

== ENCOUNTER 2023-06-10 08:36 | Outpatient (CLI) | payer MEDICARE, SELFPAY ==
[2023-06-10 09:36] LABS: Basophils Absolute Auto 0.1 K/mm3 (0.0-0.1); Basophils Percent Auto 1.2 % (0.2-1.2); Eosinophils Absolute Auto 0.1 K/mm3 (0-0.3); Eosinophils Percent Auto 2.2 % (0-4.4); Hematocrit 41.5 % (42.0-52.0); Hemoglobin 12.8 g/dL (14.0-18.0); Immature Granulocyte Absolute 0.01 K/mm3 (0.00-0.031); Immature Granulocyte Percent A 0.2 % (0-0.5); Lymphocytes Absolute Auto 1.97 K/mm3 (0.9-3.2); Lymphocytes Percent Auto 33.3 % (18.3-44.2); Mean Corpuscular HGB Conc 30.8 g/dl (32-36); Mean Corpuscular Hemoglobin 27.9 pg (26-34); Mean Corpuscular Volume 90.6 fl (80-100); Mean Platelet Volume 9.6 fl (7.4-10.4); Monocytes Absolute Auto 0.4 K/mm3 (0.1-0.6); Monocytes Percent Auto 6.8 % (2.6-8.5); Neutrophils Absolute Auto 3.3 K/mm3 (1.3-6.7); Neutrophils Percent Auto 56.3 % (45.5-73.1); Platelet Count Result 202 k/mm3 (150-375); Red Blood Count 4.58 M/mm3 (4.6-6.20); Red Cell Distribution Width 15.4 % (11.5-14.5); White Blood Count 5.9 K/mm3 (4.5-10.0)
[2023-06-10 09:51] LABS: Anion Gap 4 mmol/L (8-16); Blood Urea Nitrogen 15 mg/dL (9-20); Calcium 8.5 mg/dL (8.4-10.2); Carbon Dioxide 30 mmol/L (22-30); Chloride 102 mmol/L (98-107); Estimated Glomerular Filt Rate > 60; Glucose 113 mg/dL (65-110); Potassium 4.3 mmol/L (3.4-5.0); Sodium 136 mmol/L (137-145)
[2023-06-10 10:03] LABS: Hemoglobin A1C 6.6 % (<5.7)
[2023-06-10 10:28] LABS: Prostate Specific Antigen 2.3 ng/mL (< OR = 4.0)
[2023-06-10 11:03] LABS: LDL Cholesterol Direct 77 mg/dL
[2023-06-10 11:06] LABS: Cholesterol 135 mg/dL (0-200); HDL Direct 32 mg/dL; Triglycerides 100 mg/dL (<150)
== END 2023-06-10 08:37 | disposition home or self-care (01) ==
PROVIDERS: PCP Family Medicine; Referring Provider General Practice; Visit Provider Nurse Practitioner Family
DX: L03.116 Cellulitis of left lower limb (principal); Z13.220 Encounter for screening for lipoid disorders; R93.89 Abnormal findings on diagnostic imaging of other specified body structures; Z12.5 Encounter for screening for malignant neoplasm of prostate; R73.09 Other abnormal glucose
CPT/HCPCS: 36415; 80048; 80061; 83036; 84153; 84443; 85025; G0103

== ENCOUNTER 2023-10-25 08:00 | Outpatient (RCR) | payer MEDICARE, SELFPAY ==
[2023-08-16 09:25] VITALS: BMI 52.1
[2023-08-16 10:13] VITALS: BMI 52.1
[2023-10-25 09:02] VITALS: BMI 49.2
== END 2023-10-31 08:26 | disposition home or self-care (01) ==
LOC: ANHDMC 08:00
PROVIDERS: PCP Family Medicine; Visit Provider Family Medicine
DX: E11.9 Type 2 diabetes mellitus without complications (principal); Z68.43 Body mass index [BMI] 50.0-59.9, adult; Z71.3 Dietary counseling and surveillance
CPT/HCPCS: 97802; 97803

== ENCOUNTER 2024-02-02 07:34 | Outpatient (CLI) | payer MEDICARE, SELFPAY ==
[2024-02-02 08:29] LABS: Anion Gap 2 mmol/L (4-12); Blood Urea Nitrogen 20 mg/dL (9-20); Calcium 8.5 mg/dL (8.4-10.2); Carbon Dioxide 33 mmol/L (22-30); Chloride 103 mmol/L (98-107); Estimated Glomerular Filt Rate > 60; Glucose 106 mg/dL (65-110); Sodium 138 mmol/L (137-145)
[2024-02-02 10:18] LABS: Microalbumin Urine Random 20.6 mg/L (0-16.7)
== END 2024-02-02 07:35 | disposition home or self-care (01) ==
LOC: ANHLAB 07:37
PROVIDERS: PCP Family Medicine; Visit Provider Family Medicine
DX: E11.9 Type 2 diabetes mellitus without complications (principal)
CPT/HCPCS: 36415; 80048; 82043; 83036

== ENCOUNTER 2025-01-25 08:00 | Outpatient (CLI) | payer MEDICARE, SELFPAY ==
[2025-01-25 08:24] LABS: Hematocrit 48.4 % (42.0-52.0); Hemoglobin 14.8 g/dL (14.0-18.0); Mean Corpuscular HGB Conc 30.6 g/dl (32-36); Mean Corpuscular Volume 91.5 fl (80-100); Mean Platelet Volume 10.3 fl (7.4-10.4); Platelet Count Result 167 k/mm3 (150-375); Red Blood Count 5.29 M/mm3 (4.6-6.20); Red Cell Distribution Width 14.8 % (11.5-14.5); White Blood Count 6.9 K/mm3 (4.5-10.0)
[2025-01-25 08:35] LABS: Anion Gap 7 mmol/L (4-12); Blood Urea Nitrogen 19 mg/dL (9-20); Carbon Dioxide 30 mmol/L (22-30); Chloride 102 mmol/L (98-107); Cholesterol 172 mg/dL (0-200); Estimated Glomerular Filt Rate > 60; Glucose 126 mg/dL (65-110); HDL Direct 37 mg/dL; Potassium 4.3 mmol/L (3.4-5.0); Sodium 139 mmol/L (137-145); Triglycerides 126 mg/dL (<150)
[2025-01-25 08:46] LABS: LDL Cholesterol Direct 100 mg/dL
[2025-01-25 08:53] LABS: Hemoglobin A1C 6.5 % (<5.7)
[2025-01-25 09:04] LABS: Prostate Specific Antigen 3.1 ng/mL (< OR = 4.0)
[2025-01-25 10:42] LABS: Creatinine Urine 107.4 mg/dL
[2025-01-25 10:45] LABS: MALB Creatinine Ratio 21.3 mg/g (0-30); Microalbumin Urine Random 22.9 mg/L (0-16.7)
== END 2025-01-25 08:01 | disposition home or self-care (01) ==
LOC: ANHLAB 08:01
PROVIDERS: PCP Family Medicine
DX: E11.9 Type 2 diabetes mellitus without complications (principal); I51.7 Cardiomegaly; Z13.220 Encounter for screening for lipoid disorders; Z12.5 Encounter for screening for malignant neoplasm of prostate
CPT/HCPCS: 36415; 80048; 80061; 82043; 83036; 84153; 85027; G0103